=== PATIENT | female | born 1945 | race Caucasian/White ===

== ENCOUNTER → 2017-07-21 | Outpatient (CLI) | payer OTHER | LOC: FLAB 11:54 | PROVIDERS: ATTEND Internal Medicine | DX: J44.9 Chronic obstructive pulmonary disease, unspecified (principal); I50.9 Heart failure, unspecified; R91.8 Other nonspecific abnormal finding of lung field ==

== ENCOUNTER 2018-01-07 21:16 | Inpatient (IN) | payer OTHER, MEDICARE ==
--- NOTE | 2018-01-07 21:34 | CPEKG ---
Heart Rate: 121 RR Interval: 496 QRSD Interval: 86 QT Interval: 332 QTC Interval: 471 QRS Carey: 58 T Wave Carey: -15 EKG Severity - ABNORMAL ECG - EKG Impression: ATRIAL FIBRILLATION, V-RATE 87-142 EKG Impression: LOW VOLTAGE IN FRONTAL LEADS EKG Impression: BORDERLINE T ABNORMALITIES, INFERIOR LEADS Electronically Signed By: Sonam Sanz 07-Jan-2018 23:06:47
--- NOTE | 2018-01-07 21:40 | EDPHY ---
HPI/HX/ROS/PE/MDM Narrative: CHIEF COMPLAINT: Shortness of breath HISTORY OF PRESENT ILLNESS: The patient is a 72 y/o female with a history of COPD (on 3-5L room air) arriving via EMS complaining of worsening shortness of breath for the past three weeks. She saw her PCP after developing a cold, who prescribed her Prednisone. At this time she did not have a fever or chest pain, but she was coughing up colored sputum. She felt better for 1 week, but then began to feel worse again. For the past week she has felt sick and had mild shortness of breath. While at dinner tonight she was sitting down and felt more short of breath than normal so her skilled nursing called EMS. When EMS arrived they placed her on 6L room air instead of her normal 5L. Takes 324mg PO Aspirin daily and uses her inhalers as prescribed. The inhalers have not alleviated her symptoms today. Due to her COPD she sleeps in a chair and occasionally has swelling in her legs. Denies history of atrial fibrillation, cardiac stents, or AL's. No fever, chills, chest pain, palpitations, vomiting, diarrhea, urinary complaints, headache, lightheadedness. REVIEW OF SYSTEMS: Aside from elements discussed in the HPI, a comprehensive 10-point review of systems was reviewed and is negative. PAST MEDICAL HISTORY: COPD (on 3-5L room air), hypertension, hyperlipidemia, anemia, anxiety, pneumonia, gastritis SOCIAL HISTORY: Lives in [place] at [facility], retired, VITAL SIGNS: Reviewed by me GENERAL: Moderately obese, appears tired, well-developed, well-nourished, in mild to moderate respiratory distress. HEENT: Atraumatic. Eyes: No icterus, no injection. Mouth: moist mucous membranes. No erythema or lesions. Neck: supple with no adenopathy. LUNGS: Tachypneic, diminished breath soudns throughout, no wheezes, rhonchi or rales. CARDIAC: Irregularly irregular heart rate with mild tachycardia, no rubs, murmurs or gallops. ABDOMEN: Soft, nontender, nondistended, bowel sounds normal. BACK: No CVA tenderness. EXTREMITIES: No trauma. Bilateral pitting edema to the knees: 1+ on the left and trace on the right. Range of motion is normal throughout. NEURO: Alert and oriented, grossly nonfocal. SKIN: Warm and dry, no rash. PSYCHIATRIC: Normal mentation, no agitation. Portions of this note were transcribed by a medical sociologist. I personally performed a history, physical exam, medical decision making, and confirmed accuracy of information the transcribed note. ED Course: The patient is a 72 y/o female with a history of COPD (on 3-5L room air) arriving via EMS presenting with worsening shortness of breath for the past three weeks. On exam she is tachypneic and has diminished breath sounds throughout. She also has an irregularly irregular heart rate with mild tachycardia, and bilateral pitting edema. She is currently on 6L room air. Labs , chest x-ray, and EKG ordered. 2131: 12-LEAD EKG: Please see the full report in [facility]. My interpretation: Atrial fibrillation with a V-rate of 87-142 2234: Chest x-ray reveals a right middle lobe and lower lobe pneumonia as well as a small right pleural effusion. Additional labs ordered. She will need to be admitted for the pneumonia and new-onset atrial fibrillation. 2236: Consulted with hospitalist service, Dr. Sharma accepts admission of this patient. 2238: Reassessed patient and discussed laboratory and imaging findings. She is comfortable with plan for admission. Levofloxacin given for pneumonia. Severe Sepsis/Septic Shock Care Note The patient presents to the ED with shortness of breath, new onset atrial fibrillation, and pneumonia. The patient did have evidence of sepsis with heart rate greater than 90, and increased O2 requirements. Patient did not have evidence of end-organ dysfunction. MDM: Differential diagnosis for the patient's shortness of breath was considered including but not limited to pulmonary infectious processes, COPD exacerbation, pulmonary emboli, pulmonary edema, congestive heart failure, and cardiac causes. - Data Points Imaging Results: Imaging Impressions Chest X-Ray 01/07/18 21:56 Impression: 1. Right middle lobe and lower lobe pneumonia. Small right pleural effusion. 2. Cardiomegaly. Possible component of congestive heart failure, with mild pulmonary edema. Imaging: I viewed and interpreted images myself Laboratory Results: Laboratory Results 01/07/18 21:00 01/07/18 21:00 01/07/18 01/07/18 01/07/18 21:00 21:00 21:00 WBC RBC Hgb Hct MCV MCH MCHC RDW Plt Count MPV Neut % (Auto) Lymph % (Auto) Sullivan % (Auto) Eos % (Auto) Baso % (Auto) Nucleat RBC Rel Count Absolute Neuts (auto) Absolute Lymphs (auto) Absolute Monos (auto) Absolute Eos (auto) Absolute Basos (auto) Absolute Nucleated RBC Immature Gran % Immature Gran # PT Pending INR Pending APTT Pending Sodium 131 mEq/L L mEq/L (135-145) Potassium 4.7 mEq/L mEq/L (3.5-5.2) Chloride 94 mEq/L L mEq/L (97-110) Carbon Dioxide 26 mEq/l mEq/l (22-31) Anion Gap 11 mEq/L mEq/L (8-16) BUN 20 mg/dL mg/dL (7-23) Creatinine 1.1 mg/dL H mg/dL (0.6-1.0) Estimated GFR 49 Glucose 151 mg/dL H mg/dL (70-100) Calcium 9.0 mg/dL mg/dL (8.5-10.4) Total Bilirubin Pending 1.5 mg/dL H mg/dL (0.1-1.4) Conjugated Bilirubin 1.1 mg/dL H mg/dL (0.0-0.5) Unconjugated Bilirubin 0.4 mg/dL mg/dL (0.0-1.1) AST 32 IU/L IU/L (14-46) ALT 46 IU/L IU/L (9-52) Alkaline Phosphatase 79 IU/L IU/L (38-126) Troponin I < 0.012 ng/mL ng/mL (0.000-0.034) NT-Pro-B Natriuret Pep 5660 pg/mL H pg/mL (0-125) Total Protein 6.9 g/dL g/dL (6.3-8.2) Albumin 3.6 g/dL g/dL (3.5-5.0) 01/07/18 21:00 WBC 12.02 10^3/uL H 10^3/uL (3.80-9.50) RBC 4.00 10^6/uL L 10^6/uL (4.18-5.33) Hgb 11.3 g/dL L g/dL (12.6-16.3) Hct 36.1 % L % (38.0-47.0) MCV 90.3 fL fL (81.5-99.8) MCH 28.3 pg pg (27.9-34.1) MCHC 31.3 g/dL L g/dL (32.4-36.7) RDW 14.6 % % (11.5-15.2) Plt Count 282 10^3/uL 10^3/uL (150-400) MPV 11.8 fL H fL (8.7-11.7) Neut % (Auto) 81.9 % H % (39.3-74.2) Lymph % (Auto) 9.2 % L % (15.0-45.0) Sullivan % (Auto) 6.8 % % (4.5-13.0) Eos % (Auto) 0.9 % % (0.6-7.6) Baso % (Auto) 0.3 % % (0.3-1.7) Nucleat RBC Rel Count 0.0 % % (0.0-0.2) Absolute Neuts (auto) 9.83 10^3/uL H 10^3/uL (1.70-6.50) Absolute Lymphs (auto) 1.11 10^3/uL 10^3/uL (1.00-3.00) Absolute Monos (auto) 0.82 10^3/uL H 10^3/uL (0.30-0.80) Absolute Eos (auto) 0.11 10^3/uL 10^3/uL (0.03-0.40) Absolute Basos (auto) 0.04 10^3/uL 10^3/uL (0.02-0.10) Absolute Nucleated RBC 0.00 10^3/uL 10^3/uL (0-0.01) Immature Gran % 0.9 % % (0.0-1.1) Immature Gran # 0.11 10^3/uL H 10^3/uL (0.00-0.10) PT INR APTT Sodium Potassium Chloride Carbon Dioxide Anion Gap BUN Creatinine Estimated GFR Glucose Calcium Total Bilirubin Conjugated Bilirubin Unconjugated Bilirubin AST ALT Alkaline Phosphatase Troponin I NT-Pro-B Natriuret Pep Total Protein Albumin Medications Given: Levofloxacin/Dextrose (Levaquin 750 Mg (Premix)) 150 mls @ 100 mls/hr IV EDNOW ONE PRN Reason: Protocol Stop: 01/08/18 00:09 Last Admin: 01/07/18 23:16 Dose: 150 mls General Time Seen by Provider: 01/07/18 21:39 Initial Vital Signs: Initial Vital Signs Temperature (C) 36.7 C 01/07/18 21:16 Heart Rate 118 H 01/07/18 21:16 Respiratory Rate 20 01/07/18 21:16 Blood Pressure 167/132 H 01/07/18 21:16 O2 Sat (%) 91 L 01/07/18 21:16 O2 Delivery Mode Nasal Cannula O2 (L/minute) 6 Allergies/Adverse Reactions: Penicillins Allergy (Verified 01/07/18 21:38) Home Medications: Medication Instructions Recorded ACETAMINOPHEN 01/07/18 Advair 500/50 (*) 01/07/18 Albuterol 01/07/18 Aspirin 325 mg (*) 01/07/18 Atorvastatin Calcium 01/07/18 CLONAZEPAM 01/07/18 Escitalopram Oxalate 01/07/18 Metoprolol Tartrate 01/07/18 Prednisone 01/07/18 Proair Hfa 01/07/18 Ramipril 01/07/18 Spiriva Handihaler 01/07/18 Sucralfate 01/07/18 Tricor 01/07/18 amLODIPine BESYLATE 01/07/18 Departure - Departure Disposition: [facility] Inpatient Acute Clinical Impression: Shortness of breath, Pleural effusion Atrial fibrillation Qualifiers: Atrial fibrillation type: unspecified Qualified Code(s): I48.91 - Unspecified atrial fibrillation Pneumonia Qualifiers: Pneumonia type: due to unspecified organism Laterality: right Lung location: lower lobe of lung Qualified Code(s): J18.1 - Lobar pneumonia, unspecified organism Condition: Fair Report Scribed for: Sonam Sanz Report Scribed by: Antonette Ford Date of Report: 01/07/18 Time of Report: 21:40
[2018-01-07 22:09] LABS: PLATELET COUNT 282 10^3/uL (150-400)
[2018-01-07] MEDS ORDERED: ONDANSETRON 4 MG/2 ML VIAL IVP PRN (22:37)
[2018-01-07] MEDS ORDERED: methylPREDNISolone SOD SUCC 125 MG/2 ML VIAL IVP ONE (23:26)
[2018-01-07 23:27] LABS: INR 1.2 (0.83-1.16); PROTIME(PATIENT) 15.4 SEC (12.0-15.0)
--- NOTE | 2018-01-07 23:38 | PDGENHP ---
History and Physical - Chief Complaint Shortness of breath - History of Present Illness 72 yo obese F w/ COPD, CHRF, and HTN presents with cough and SOB. Patient states she was doing relatively well until 5 days ago when she began to note increased cough and shortness of breath. Her cough then became produce of yellow /green sputum. She sees ui software developer Dr. Chaparro for COPD and uses 3-5 L/min O2 chronically. She has had at least 3 COPD exacerbations in the last year. She explains that azithromycin and prednisone usually provide temporary relief but her symptoms eventually return. Currently she is short of breath but no in severe distress. She also is now in Afib, which she denies any prior knowledge of. History Information - Allergies/Home Medication List Allergies/Adverse Reactions: Penicillins Allergy (Verified 01/07/18 21:38) Home Medications: ACETAMINOPHEN 01/07/18 [Last Taken Unknown] Advair 500/50 (*) 01/07/18 [Last Taken Unknown] Albuterol 01/07/18 [Last Taken Unknown] Aspirin 325 mg (*) 01/07/18 [Last Taken Unknown] Atorvastatin Calcium 01/07/18 [Last Taken Unknown] CLONAZEPAM 01/07/18 [Last Taken Unknown] Escitalopram Oxalate 01/07/18 [Last Taken Unknown] Metoprolol Tartrate 01/07/18 [Last Taken Unknown] Prednisone 01/07/18 [Last Taken Unknown] Proair Hfa 01/07/18 [Last Taken Unknown] Ramipril 01/07/18 [Last Taken Unknown] Spiriva Handihaler 01/07/18 [Last Taken Unknown] Sucralfate 01/07/18 [Last Taken Unknown] Tricor 01/07/18 [Last Taken Unknown] amLODIPine BESYLATE 01/07/18 [Last Taken Unknown] I have personally reviewed and updated: family history, medical history - Past Medical History COPD, hypertension - Family History Positive for: cancer - Social History Smoking Status: Former smoker Review of Systems Review of Systems: ROS: 10pt was reviewed & negative except for what was stated in HPI & below Physical Exam Physical Exam: Temp Pulse Resp BP Pulse Ox 36.7 C 104 H 25 H 145/106 H 95 01/07/18 21:16 01/07/18 23:15 01/07/18 23:15 01/07/18 23:15 01/07/18 23:15 O2 (L/minute) 6 Constitutional: obese, uncomfortable Eyes: PERRL, EOMI Ears, Nose, Mouth, Throat: moist mucous membranes, no oral mucosal ulcers Cardiovascular: systolic murmur, irregularly irregular, edema (2+ LLE, 1+LLE) Respiratory: reduced air movement, other (Prolonged expiratory phase) Gastrointestinal: normoactive bowel sounds, soft, non-tender abdomen Skin: warm, normal color Musculoskeletal: full muscle strength, no muscle tenderness Neurologic: AAOx3, CN II-XII Intact Psychiatric: interacting appropriately, not anxious Lab Data & Imaging Review 01/07/18 21:00 01/07/18 21:00 WBC 12.02 10^3/uL (3.80-9.50) H 01/07/18 21:00 RBC 4.00 10^6/uL (4.18-5.33) L 01/07/18 21:00 Hgb 11.3 g/dL (12.6-16.3) L 01/07/18 21:00 Hct 36.1 % (38.0-47.0) L 01/07/18 21:00 MCV 90.3 fL (81.5-99.8) 01/07/18 21:00 MCH 28.3 pg (27.9-34.1) 01/07/18 21:00 MCHC 31.3 g/dL (32.4-36.7) L 01/07/18 21:00 RDW 14.6 % (11.5-15.2) 01/07/18 21:00 Plt Count 282 10^3/uL (150-400) 01/07/18 21:00 MPV 11.8 fL (8.7-11.7) H 01/07/18 21:00 Neut % (Auto) 81.9 % (39.3-74.2) H 01/07/18 21:00 Lymph % (Auto) 9.2 % (15.0-45.0) L 01/07/18 21:00 Fleming % (Auto) 6.8 % (4.5-13.0) 01/07/18 21:00 Eos % (Auto) 0.9 % (0.6-7.6) 01/07/18 21:00 Baso % (Auto) 0.3 % (0.3-1.7) 01/07/18 21:00 Nucleat RBC Rel Count 0.0 % (0.0-0.2) 01/07/18 21:00 Absolute Neuts (auto) 9.83 10^3/uL (1.70-6.50) H 01/07/18 21:00 Absolute Lymphs (auto) 1.11 10^3/uL (1.00-3.00) 01/07/18 21:00 Absolute Monos (auto) 0.82 10^3/uL (0.30-0.80) H 01/07/18 21:00 Absolute Eos (auto) 0.11 10^3/uL (0.03-0.40) 01/07/18 21:00 Absolute Basos (auto) 0.04 10^3/uL (0.02-0.10) 01/07/18 21:00 Absolute Nucleated RBC 0.00 10^3/uL (0-0.01) 01/07/18 21:00 Immature Gran % 0.9 % (0.0-1.1) 01/07/18 21:00 Immature Gran # 0.11 10^3/uL (0.00-0.10) H 01/07/18 21:00 PT 15.4 SEC (12.0-15.0) H 01/07/18 21:00 INR 1.20 (0.83-1.16) H 01/07/18 21:00 APTT 34.5 SEC (23.0-38.0) 01/07/18 21:00 VBG Lactic Acid 0.9 mmol/L (0.7-2.1) 01/07/18 22:45 Sodium 131 mEq/L (135-145) L 01/07/18 21:00 Potassium 4.7 mEq/L (3.5-5.2) 01/07/18 21:00 Chloride 94 mEq/L (97-110) L 01/07/18 21:00 Carbon Dioxide 26 mEq/l (22-31) 01/07/18 21:00 Anion Gap 11 mEq/L (8-16) 01/07/18 21:00 BUN 20 mg/dL (7-23) 01/07/18 21:00 Creatinine 1.1 mg/dL (0.6-1.0) H 01/07/18 21:00 Estimated GFR 49 01/07/18 21:00 Glucose 151 mg/dL (70-100) H 01/07/18 21:00 Calcium 9.0 mg/dL (8.5-10.4) 01/07/18 21:00 Total Bilirubin 1.4 mg/dL (0.1-1.4) 01/07/18 21:00 Conjugated Bilirubin 1.1 mg/dL (0.0-0.5) H 01/07/18 21:00 Unconjugated Bilirubin 0.4 mg/dL (0.0-1.1) 01/07/18 21:00 AST 32 IU/L (14-46) 01/07/18 21:00 ALT 46 IU/L (9-52) 01/07/18 21:00 Alkaline Phosphatase 79 IU/L (38-126) 01/07/18 21:00 Troponin I < 0.012 ng/mL (0.000-0.034) 01/07/18 21:00 NT-Pro-B Natriuret Pep 5660 pg/mL (0-125) H 01/07/18 21:00 Total Protein 6.9 g/dL (6.3-8.2) 01/07/18 21:00 Albumin 3.6 g/dL (3.5-5.0) 01/07/18 21:00 Imaging Review: Imaging Impressions Chest X-Ray 01/07/18 21:56 Impression: 1. Right middle lobe and lower lobe pneumonia. Small right pleural effusion. 2. Cardiomegaly. Possible component of congestive heart failure, with mild pulmonary edema. Assessment & Plan Assessment: 72 yo obese F w/ COPD, HTN, and CHRF presents with pneumonia and new AF. Plan: 1. Pneumonia - Based on SOB, cough w/ sputum production, and RML/RLL infiltrates on CXR. WBC of 12, afebrile. Tachycardic but in Afib so may not be physiologic. - Will treat with levofloxacin IV noting multiple prior azithromycin courses and risk for resistant organisms, mainly Pseudomonas - Blood and sputum cultures ordered 2. Severe COPD - Likely GOLD III-D noting FEV1 of 49% predicted and now >3 exacerbations in the last year. I suspect mild exacerbation is present noting patient is moving very small lung volumes currently. She has had at least three (4 counting today) exacerbations in the last year. She usually improves with course of azithromycin and prednisone but symptoms recur a few weeks later. - Methylprednisolone x1 now, then prednisone 40 mg qD - Duonebs QID, albuterol PRN - Levofloxacin as above - Will send sputum culture to see if we can identify resistant organism - Consider CT chest to look for predisposing factor to recurrent exacerbations ( malignancy, bronchiectasis), could be done as outpatient - Would likely benefit from daily azithromycin moving forward, but will defer this to ui software developer 3. Atrial fibrillation - New problem for this patient, likely triggered by pneumonia. [id number] of 3 for HTN, female sex, and age. Rates currently 90-110 without rate control. - Monitor on telemetry, TTE ordered - Treat acute infection as above - On metoprolol for HTN already - Consider anticoagulation 4. Suspected dCHF - Pulmonary edema and elevated BNP on admission. Will evaluate with TTE. - Lasix 20 mg IV x1 - Evaluate for ongoing dosing as needed 5. Acute on chronic HRF - Likely multifactorial from infectin, COPD exacerbation , AF, and mild pulmonary edema. Uses 3-5 L/min O2 at baseline, currently on 6 L O2. - Acute treatments as above - Incentive spirometry, wean O2 as able 6. HTN - Continue metoprolol Diet - Regular Code - Full Ppx - LMWH Dispo - Admit under inpatient status noting multiple active issues and need for further treatment and work-up.
[2018-01-07] MEDS ORDERED: FUROSEMIDE 20 MG/2 ML VIAL IVP ONE (23:56)
[2018-01-08] MEDS: IPRATROPIUM/ALBUTEROL 3 ML DEYVIAL IH SCH ×5 (00:10→23:52)
--- NOTE | 2018-01-08 00:22 | PDMN ---
Medical Necessity Medical necessity: C/M review: est. > 2 MN LO for eval and TX of acute and persistent pneumonia, COPD exacerbation, new atrial fibrillation, suspected diastolic CHF, acute hypoxic respiratory failure, mild pulmonary edema requiring IV Lasix x 1, IV Methylprednisolone x 1, planned echocardiogram, ongoing IV Levaquin, Duonebs, cardiac monitoring, supplemental O2 6L/min., pulse oximetry, comorbid severe COPD likely GOLD III-D, > 3 exacerbations in the last year, chronic hypoxic respiratory failure on baseline 3-5l/min. O2, hypertension, obesity, history of patient former smoker per H/P.
[2018-01-08] MEDS: ONDANSETRON DISINTEGRATING 4 MG TAB PO PRN ×2 (00:42→15:56)
[2018-01-08 04:31] LABS: PLATELET COUNT 213 10^3/uL (150-400)
[2018-01-08] MEDS: predniSONE 20 MG TAB PO SCH (08:32)
[2018-01-08] MEDS: ENOXAPARIN 40 MG/0.4 ML SYR SC SCH (08:32)
[2018-01-08] MEDS ORDERED: DILTIAZEM 125 MG in D5W 125 ML IV SCH (09:30)
--- NOTE | 2018-01-08 10:24 | ECHO ---
[email or web address] [address] [address] Main: [phone] Fax: Transthoracic Echocardiogram Name: NICANOR STORY MR#: [id number] Study Date: 01/08/2018 Study Time: 07:18 AM Date of : 1945 Age: 72 year(s) Height: 172.7 cm (68 in.) Weight: 113.4 kg (250 lb.) BSA: 2.25 m2 Gender: Female Examination: Echo Indication: Question CHF Image Quality: Technically Difficult Contrast: Requested by: Napoleon Duarte BP: 123 mmHg/59 mmHg Heart Rate: Rhythm: Indication: Question CHF Procedure Staff Regional Merchandising Manager: Heather Howard [facility] Reading Physician: Ramesh Thibodeaux MD Requesting Provider: Conclusions: The left atrium is mildly dilated. Mild mitral valve leaflet calcification is present. Tricuspid valve not well visualized. Mild tricuspid regurgitation is present. Pulmonary valve not well visualized. Pt is chair all night (breathing difficulty). Very limited views available for interpretation.. Technically very limited study Measurements: Chambers Valvular Assessment AV/MV Valvular Assessment TV/PV Normal Normal Normal Name Value Range Name Value Range Name Value Range Ao Marian (2D): 3.6 cm (1.4 cm-2.6 cm) Continued Measurements: Chambers Name Value LADs: 4.8 cm Findings: Left Atrium: The left atrium is mildly dilated. Mitral Valve: Mild mitral valve leaflet calcification is present. Tricuspid Valve: Patient: NICANOR STORY Study Date: 01/08/2018 Page 1 of 2 07:18 AM Tricuspid valve not well visualized. Mild tricuspid regurgitation is present. Pulmonic Valve: Pulmonary valve not well visualized. Pericardium: There is pericardial fat. Exam Comments: Pt is chair all night (breathing difficulty). Very limited views available for interpretation.. (No Signature Object) Patient: NICANOR STORY Study Date: 01/08/2018 Page 2 of 2 07:18 AM [id number]
--- NOTE | 2018-01-08 13:34 | ASMTCMCOM ---
CM Note CM Note Notes: Patient admitted for PNA superimposed on severe COPD. I met with patient, she lives at [facility]. She does not really have much assistance there, just some housekeeping help. She is normally independent. I explained that GW will likely require an evaulation if she is here more than 24 hours. Patient has a daughter Erica who is local and supportive. I don't think patient will have any d/c needs, but we will assist if any arise. Date Signed: 01/08/2018 01:33 PM Electronically Signed By:Marcela Degroot RN
--- NOTE | 2018-01-08 14:13 | HOSPPROG ---
Hospitalist Progress Note Assessment/Plan: # Acute Atrial fibrillation w/ RVR- likely triggered by PNA/COPD. [id number] of 3 TElemetry (personally reviewed and interpreted) atrial fibrillation Rates currently 140-150 - start IV diltiazem drip - Monitor on telemetry, TTE ordered - Treat underlying pulmonary process - continue outpatient metoprolol- can up titrate - Consider anticoagulation # community acquired Pneumonia - with SOB, cough w/ sputum production -CXR- RML/ RLL infiltrates WBC of 12, afebrile. - continue levofloxacin IV (multiple prior azithromycin courses) - monitor Blood and sputum cultures # Severe COPD - with acute exacerbation - describe still feeling tight this morning Oxygen saturations 91% on 6 L - received Methylprednisolone x1 - continue prednisone 40 mg qD - Duonebs QID, albuterol PRN - monitor sputum culture - will need outpatient rehab therapy manager # Suspected dCHF - Pulmonary edema and elevated BNP on admission- received Lasix 20 mg IV x1 in emergency department - TTE pending # Acute on chronic HRF - Likely multifactorial from infectin, COPD exacerbation , AF, and mild pulmonary edema. Uses 3-5 L/min O2 at baseline, currently on 6 L O2. - Acute treatments as above - Incentive spirometry, wean O2 as able # HTN - Continue metoprolol # Diet - Regular Code - Full Ppx - LMWH Dispo - Admit under inpatient status noting multiple active issues and need for further treatment and work-up. I have discussed the case with the RN-we will start diltiazem drip this morning for rate control Subjective: Very short of breath Objective: Vital Signs Temp Pulse Resp BP Pulse Ox 36.6 C 105 H 20 146/61 H 91 L 01/08/18 11:07 01/08/18 12:01 01/08/18 12:01 01/08/18 11:07 01/08/18 12:01 Laboratory Results 01/08/18 03:58 01/08/18 03:58 01/07/18 01/08/18 01/09/18 05:59 05:59 05:59 Intake Total 210 Output Total 50 Balance 160 PT 15.4 SEC (12.0-15.0) H 01/07/18 21:00 INR 1.20 (0.83-1.16) H 01/07/18 21:00 - Physical Exam Constitutional: no apparent distress Eyes: anicteric sclera Ears, Nose, Mouth, Throat: moist mucous membranes Cardiovascular: irregularly irregular, tachycardia Respiratory: no respiratory distress Gastrointestinal: normoactive bowel sounds Genitourinary: no bladder fullness Skin: warm Musculoskeletal: No asymmetric calves Neurologic: AAOx3 Psychiatric: interacting appropriately Lymph, Heme, Immunologic: no cervical LAD ICD10 Worksheet Patient Problems: Problems Problem Status Onset Atrial fibrillation Acute Pleural effusion Acute Pneumonia Acute Shortness of breath Acute
[2018-01-08] MEDS ORDERED: FAMOTIDINE 20 MG TAB PO PRN (14:17)
[2018-01-08] MEDS ORDERED: clonazePAM 0.5 MG TAB PO PRN (14:17)
[2018-01-08] MEDS: TIOTROPIUM INHALER 18 MCG/DOSE 5 DOSE/MDI IH SCH (15:21)
[2018-01-08] MEDS: FLUTICASONE/SALMETER 500/50MCG DISKUS IH SCH ×2 (15:21→23:52)
[2018-01-08] MEDS: METOPROLOL TARTRATE 50 MG TAB PO SCH ×2 (15:56→21:13)
[2018-01-09 04:23] LABS: PLATELET COUNT 214 10^3/uL (150-400)
[2018-01-09] MEDS: SUCRALFATE 1 GM TAB PO PRN ×2 (04:48→13:57)
[2018-01-09] MEDS: ONDANSETRON DISINTEGRATING 4 MG TAB PO PRN ×3 (04:48→15:29)
[2018-01-09] MEDS: IPRATROPIUM/ALBUTEROL 3 ML DEYVIAL IH SCH ×3 (06:04→17:07)
[2018-01-09] MEDS: FLUTICASONE/SALMETER 500/50MCG DISKUS IH SCH (08:48)
[2018-01-09] MEDS ORDERED: ASPIRIN 325 MG TAB PO SCH (09:00)
[2018-01-09] MEDS: FENOFIBRATE 145 MG TAB PO SCH (09:29)
[2018-01-09] MEDS: CETIRIZINE 10 MG TAB PO SCH (09:30)
[2018-01-09] MEDS: ENOXAPARIN 40 MG/0.4 ML SYR SC SCH (09:30)
[2018-01-09] MEDS: predniSONE 20 MG TAB PO SCH (09:30)
[2018-01-09] MEDS: ESCITALOPRAM OXALATE 10 MG TAB PO SCH (09:30)
[2018-01-09] MEDS: ROSUVASTATIN CALCIUM 10 MG TAB PO SCH (09:30)
[2018-01-09] MEDS: METOPROLOL TARTRATE 50 MG TAB PO SCH ×2 (09:31→21:28)
[2018-01-09] MEDS: TIOTROPIUM INHALER 18 MCG/DOSE 5 DOSE/MDI IH SCH (10:48)
[2018-01-09] MEDS ORDERED: MAGNESIUM HYDROXIDE 30 ML UDCUP PO PRN (11:07)
[2018-01-09] MEDS ORDERED: POLYETHYLENE GLYCOL 3350 17 GM PKT PO PRN (11:07)
[2018-01-09] MEDS ORDERED: BISACODYL 10 MG SUPP PR PRN (11:07)
[2018-01-09] MEDS ORDERED: LACTULOSE 20 GM/30 ML UDCUP PO PRN (11:07)
[2018-01-09] MEDS ORDERED: METOPROLOL TARTRATE 25 MG TAB PO ONE (11:09)
--- NOTE | 2018-01-09 12:38 | HOSPPROG ---
Hospitalist Progress Note Assessment/Plan: # Acute Atrial fibrillation w/ RVR- likely triggered by PNA/COPD. [id number] of 3 Telemetry (personally reviewed and interpreted) atrial fibrillation Rates currently 140-150 - stopped IV diltiazem drip - starting eliquis - increase home Metoprolol to 75mb BID # community acquired Pneumonia - with SOB, cough w/ sputum production -CXR- RML/ RLL infiltrates WBC of 12, afebrile. - continue levofloxacin PO - monitor Blood and sputum cultures # Severe COPD - with acute exacerbation - breathing more comfortably today Oxygen saturations 91% on 6 L - received Methylprednisolone x1 - continue prednisone 40 mg qD - Duonebs QID, albuterol PRN - monitor sputum culture - will need outpatient insurance verification clerk # Suspected dCHF - Pulmonary edema and elevated BNP on admission- received Lasix 20 mg IV x1 in emergency department - TTE pending # Acute on chronic HRF - Likely multifactorial from infectin, COPD exacerbation , AF, and mild pulmonary edema. Uses 3-5 L/min O2 at baseline, currently on 6 L O2. - Acute treatments as above - Incentive spirometry, wean O2 as able # HTN - Continue metoprolol # Diet - Regular Code - Full Ppx - LMWH Dispo - Admit under inpatient status noting multiple active issues and need for further treatment and work-up. I have discussed the case with the RN-we will start diltiazem drip this morning for rate control Subjective: sob Objective: Vital Signs Temp Pulse Resp BP Pulse Ox 36.9 C 102 H 20 125/77 H 90 L 01/09/18 12:00 01/09/18 12:00 01/09/18 12:00 01/09/18 12:00 01/09/18 12:00 Laboratory Results 01/09/18 03:46 01/08/18 03:58 01/08/18 01/09/18 01/10/18 05:59 05:59 05:59 Intake Total 210 1250 Output Total 50 200 Balance 160 1050 PT 15.4 SEC (12.0-15.0) H 01/07/18 21:00 INR 1.20 (0.83-1.16) H 01/07/18 21:00 - Physical Exam Constitutional: chronically ill appearing, obese Eyes: anicteric sclera Ears, Nose, Mouth, Throat: moist mucous membranes Cardiovascular: regular rate and rhythym Respiratory: reduced air movement, No expiratory wheeze Gastrointestinal: normoactive bowel sounds Genitourinary: no bladder fullness Skin: warm Musculoskeletal: full muscle strength Neurologic: AAOx3 Psychiatric: interacting appropriately Lymph, Heme, Immunologic: no cervical LAD ICD10 Worksheet Patient Problems: Problems Problem Status Onset Atrial fibrillation Acute Pleural effusion Acute Pneumonia Acute Shortness of breath Acute chronic disease mgmt/transitional care Acute
[2018-01-09] MEDS: APIXABAN 5 MG TAB PO SCH ×2 (13:53→21:29)
[2018-01-09] MEDS ORDERED: ONDANSETRON DISINTEGRATING 4 MG TAB PO PRN (19:28)
[2018-01-09] MEDS ORDERED: PROMETHAZINE HCL 25 MG TAB PO PRN (19:28)
[2018-01-09] MEDS: PROMETHAZINE HCL 25 MG/ML INJ IVP PRN (19:54)
[2018-01-09] MEDS: clonazePAM 0.5 MG TAB PO PRN (20:05)
[2018-01-09] MEDS: SENNOSIDES/DOCUSATE SODIUM TAB PO SCH (21:28)
[2018-01-10] MEDS: FLUTICASONE/SALMETER 500/50MCG DISKUS IH SCH ×3 (00:42→20:59)
[2018-01-10] MEDS: IPRATROPIUM/ALBUTEROL 3 ML DEYVIAL IH SCH ×5 (00:43→20:59)
[2018-01-10] MEDS: ACETAMINOPHEN 325 MG TAB PO PRN (03:53)
[2018-01-10] MEDS: PROMETHAZINE HCL 25 MG/ML INJ IVP PRN ×2 (07:45→17:29)
[2018-01-10] MEDS ORDERED: NS 1,000 ML IV ONE (08:21)
[2018-01-10] MEDS: METOPROLOL TARTRATE 50 MG TAB PO SCH ×2 (09:44→21:55)
[2018-01-10] MEDS: ESCITALOPRAM OXALATE 10 MG TAB PO SCH (09:44)
[2018-01-10] MEDS: FENOFIBRATE 145 MG TAB PO SCH (09:44)
[2018-01-10] MEDS: predniSONE 20 MG TAB PO SCH (09:44)
[2018-01-10] MEDS: ROSUVASTATIN CALCIUM 10 MG TAB PO SCH (09:44)
[2018-01-10] MEDS: CETIRIZINE 10 MG TAB PO SCH (09:44)
[2018-01-10] MEDS: APIXABAN 5 MG TAB PO SCH ×2 (09:44→21:54)
[2018-01-10] MEDS: SENNOSIDES/DOCUSATE SODIUM TAB PO SCH ×2 (09:45→21:54)
[2018-01-10] MEDS: PANTOPRAZOLE SODIUM 40 MG VIAL IVP SCH (10:01)
[2018-01-10] MEDS: TIOTROPIUM INHALER 18 MCG/DOSE 5 DOSE/MDI IH SCH (10:37)
--- NOTE | 2018-01-10 12:44 | ASMTCMCOM ---
CM Note CM Note Notes: 01/10/2018 Case Management Note Met w/pt this morning. Pt was admitted for PNA and AF. Pt lives at [facility]. She takes three meals a day in the dining bowles. She also has light housekeeping. She is independent in her ADL's and does not use any med management services. Pt has 2 daughters involved in her cares. Daughter Kusum lives in [place] and can be reached at [phone]. Daughter Jennifer lives in [place] and can be reached at [phone]. Case Management d/c poc: to be determined pending outcome of PT evals over the next few days. Pt may require home care. Case Management to follow. Date Signed: 01/10/2018 12:44 PM Electronically Signed By:Estrellita Prajapati RN
--- NOTE | 2018-01-10 15:41 | ASMTCMCOM ---
CM Note CM Note Notes: 01/10/2018 Case Management Note Discussed patient d/c with PT. PT recommending SNF. Discussed recommendations with patient. Discussed with daughter Kusum who is in agreement. Transitional Care RN also recommending SNF rehab. Discussed options with Kusum and sent referrals at her request for [facility], [facility], [facility], [facility], [facility] and [facility]. Spoke with daughter Jennifer who lives in [place]. Jennifer is arriving tomorrow late morning and plans to arrive at [facility] after lunch. Discussed SNF rehabs with Jennifer who is in agreement. Case Management d/c poc: to SNF rehab pending acceptance and authorization. Case Management to follow. Date Signed: 01/10/2018 03:40 PM Electronically Signed By:Estrellita Prajapati RN
--- NOTE | 2018-01-10 18:03 | HOSPPROG ---
Hospitalist Progress Note Assessment/Plan: # Acute Atrial fibrillation w/ RVR- pt remains in afib - rates with improved control ikely triggered by PNA/COPD. [id number] of 3 Telemetry (personally reviewed and interpreted) atrial fibrillation Rates 80 -90 - stopped IV diltiazem drip - starting eliquis - continue increased home Metoprolol to 75mg BID # Hyponatremia - drop overnight to 127 - pt with verpoor PO inpatient suspect likely a component of hypovolemia - - NS bolus now - Urine sodium spot - recheck BMP this pm # AUBREE - also suspect related to poor PO intake - NS as above - no nephrotoxins on list - recheck this pm # community acquired Pneumonia - with SOB, cough w/ sputum production -CXR- RML/ RLL infiltrates WBC of 12, afebrile. - continue levofloxacin PO - monitor Blood and sputum cultures # Severe COPD - with acute exacerbation - breathing more comfortably today Oxygen saturations 96% on 6 L - received Methylprednisolone x1 in ED- respiratory pathogen panel negative - continue prednisone 40 mg qD - Duonebs QID, albuterol PRN - will need outpatient long haul truck driver # Suspected dCHF - elevated BNP on admission- received Lasix 20 mg IV x1 in emergency department - TTE with poor windows - no clear EF estimate # Acute on chronic HRF - Likely multifactorial from infectin, COPD exacerbation , AF, and mild pulmonary edema. Uses 3-5 L/min O2 at baseline, currently on 6 L O2. - Acute treatments as above - Incentive spirometry, wean O2 as able # HTN - Continue metoprolol # Diet - Regular Code - Full Ppx - LMWH Dispo - Admit under inpatient status noting multiple active issues and need for further treatment and work-up. I have discussed the case with the RN-we will focus on bowel regimen today to help with nausea and promote better PO Subjective: nauseated Objective: Vital Signs Temp Pulse Resp BP Pulse Ox 36.8 C 120 H 20 148/91 H 91 L 01/10/18 17:54 01/10/18 17:54 01/10/18 17:54 01/10/18 17:54 01/10/18 17:54 Laboratory Results 01/09/18 03:46 01/10/18 12:05 01/09/18 01/10/18 01/11/18 05:59 05:59 05:59 Intake Total 1250 200 780 Output Total 200 500 800 Balance 1050 -300 -20 PT 15.4 SEC (12.0-15.0) H 01/07/18 21:00 INR 1.20 (0.83-1.16) H 01/07/18 21:00 - Physical Exam Constitutional: chronically ill appearing, obese Eyes: anicteric sclera Ears, Nose, Mouth, Throat: moist mucous membranes Cardiovascular: irregularly irregular Respiratory: reduced air movement, No expiratory wheeze Gastrointestinal: normoactive bowel sounds Genitourinary: no bladder fullness Skin: warm Musculoskeletal: No asymmetric calves Neurologic: AAOx3 Psychiatric: interacting appropriately Lymph, Heme, Immunologic: no cervical LAD ICD10 Worksheet Patient Problems: Problems Problem Status Onset Atrial fibrillation Acute Pleural effusion Acute Pneumonia Acute Shortness of breath Acute chronic disease mgmt/transitional care Acute
[2018-01-10] MEDS: clonazePAM 0.5 MG TAB PO PRN (21:54)
[2018-01-11] MEDS: IPRATROPIUM/ALBUTEROL 3 ML DEYVIAL IH SCH ×4 (05:24→21:51)
[2018-01-11] MEDS ORDERED: SODIUM POLY SULF 15 GM/60 ML BOTTLE PO ONE (08:36)
[2018-01-11] MEDS ORDERED: NS 500 ML IV ONE (08:37)
[2018-01-11] MEDS: PANTOPRAZOLE SODIUM 40 MG VIAL IVP SCH (09:09)
[2018-01-11] MEDS: POLYETHYLENE GLYCOL 3350 17 GM PKT PO SCH (09:10)
[2018-01-11] MEDS: ESCITALOPRAM OXALATE 10 MG TAB PO SCH (09:10)
[2018-01-11] MEDS: SENNOSIDES/DOCUSATE SODIUM TAB PO SCH ×2 (09:10→21:40)
[2018-01-11] MEDS: ROSUVASTATIN CALCIUM 10 MG TAB PO SCH (09:10)
[2018-01-11] MEDS: METOPROLOL TARTRATE 50 MG TAB PO SCH ×2 (09:10→21:39)
[2018-01-11] MEDS: predniSONE 20 MG TAB PO SCH (09:11)
[2018-01-11] MEDS: APIXABAN 5 MG TAB PO SCH ×2 (09:11→21:40)
[2018-01-11] MEDS: CETIRIZINE 10 MG TAB PO SCH (09:11)
[2018-01-11] MEDS: FENOFIBRATE 145 MG TAB PO SCH (09:11)
[2018-01-11] MEDS: FLUTICASONE/SALMETER 500/50MCG DISKUS IH SCH ×2 (10:25→21:51)
[2018-01-11] MEDS: TIOTROPIUM INHALER 18 MCG/DOSE 5 DOSE/MDI IH SCH (10:26)
--- NOTE | 2018-01-11 12:37 | HOSPPROG ---
Hospitalist Progress Note Assessment/Plan: # Acute Atrial fibrillation w/ RVR- pt remains in afib - rates with improved control likely triggered by PNA/COPD. [id number] of 3 Telemetry (personally reviewed and interpreted) atrial fibrillation Rates 80 -90 - stopped IV diltiazem drip - started eliquis - continue increased home Metoprolol to 75mg BID # Hyponatremia - drop overnight to 125 - pt with yamilex poor PO inpatient suspect likely a component of hypovolemia - urine sodium low - repeat NS bolus now - start salt tabs - recheck BMP this pm # AUBREE on CKD- also suspect related to poor PO intake - near baseline - NS as above - no nephrotoxins on list - recheck this pm # hyperkalemia - 5.5 - has been fluctuating - responded to IVF yesterday - repeat bolus - kayexelate x 1 - recheck BMP this afternoon # community acquired Pneumonia - with SOB, cough w/ sputum production -CXR- RML/ RLL infiltrates WBC of 12-> 6, afebrile. - continue levofloxacin PO - monitor Blood and sputum cultures # Severe COPD - with acute exacerbation - breathing more comfortably today Oxygen saturations 96% on 6 L - received Methylprednisolone x1 in ED- respiratory pathogen panel negative - continue prednisone 40 mg qD - Duonebs QID, albuterol PRN - will need outpatient engineering model maker # Suspected dCHF - elevated BNP on admission- received Lasix 20 mg IV x1 in emergency department - TTE with poor windows - no clear EF estimate # Acute on chronic HRF - Likely multifactorial from infection, COPD exacerbation , AF, and mild pulmonary edema. Uses 3-5 L/min O2 at baseline, currently on 6 L O2. - Acute treatments as above - Incentive spirometry, wean O2 as able # HTN - Continue metoprolol # Diet - Regular Code - Full Ppx - LMWH Dispo - Admit under inpatient status noting multiple active issues and need for further treatment and work-up. I have discussed the case with the RN-adding Kayexalate for hyperkalemia should assist with bowel regimen as well Subjective: breathing feels better- no BM Objective: Vital Signs Temp Pulse Resp BP Pulse Ox 36.7 C 110 H 18 105/70 94 01/11/18 12:00 01/11/18 12:00 01/11/18 12:00 01/11/18 12:00 01/11/18 12:00 Laboratory Results 01/09/18 03:46 01/10/18 01/11/18 01/12/18 05:59 05:59 05:59 Intake Total 200 2130 500 Output Total 500 1250 1150 Balance -300 880 -650 PT 15.4 SEC (12.0-15.0) H 01/07/18 21:00 INR 1.20 (0.83-1.16) H 01/07/18 21:00 - Physical Exam Constitutional: chronically ill appearing, obese Eyes: anicteric sclera Ears, Nose, Mouth, Throat: moist mucous membranes Cardiovascular: regular rate and rhythym Respiratory: reduced air movement, No expiratory wheeze Gastrointestinal: normoactive bowel sounds Genitourinary: no bladder fullness Skin: warm Musculoskeletal: No asymmetric calves Neurologic: AAOx3 Psychiatric: interacting appropriately Lymph, Heme, Immunologic: no cervical LAD ICD10 Worksheet Patient Problems: Problems Problem Status Onset Atrial fibrillation Acute Pleural effusion Acute Pneumonia Acute Shortness of breath Acute chronic disease mgmt/transitional care Acute
--- NOTE | 2018-01-11 16:52 | ASMTCMCOM ---
CM Note CM Note Notes: 01/11/2018 Case Management Note Met w/pt daughter Jennifer to discuss accepting SNF facilities. Jennifer and sister Kusum to visit tonight and tomorrow morning to make final decision. Faxed updates via [employer]. After discussion, Jennifer requested Palliative Care Consult. Notified RN and MD of request. Case Management d/c poc: to SNF rehab pending family choice. Case Management to follow. Date Signed: 01/11/2018 04:52 PM Electronically Signed By:Estrellita Prajapati RN
[2018-01-11] MEDS: PROMETHAZINE HCL 25 MG/ML INJ IVP PRN (18:07)
[2018-01-12] MEDS: IPRATROPIUM/ALBUTEROL 3 ML DEYVIAL IH SCH ×4 (06:01→20:38)
[2018-01-12] MEDS: PROMETHAZINE HCL 25 MG/ML INJ IVP PRN (09:05)
[2018-01-12] MEDS: PANTOPRAZOLE SODIUM 40 MG VIAL IVP SCH (09:10)
[2018-01-12] MEDS: SENNOSIDES/DOCUSATE SODIUM TAB PO SCH ×2 (09:18→22:07)
[2018-01-12] MEDS: ESCITALOPRAM OXALATE 10 MG TAB PO SCH (09:18)
[2018-01-12] MEDS: APIXABAN 5 MG TAB PO SCH ×2 (09:19→22:07)
[2018-01-12] MEDS: METOPROLOL TARTRATE 50 MG TAB PO SCH ×2 (09:19→22:08)
[2018-01-12] MEDS: ROSUVASTATIN CALCIUM 10 MG TAB PO SCH (09:19)
[2018-01-12] MEDS: predniSONE 20 MG TAB PO SCH (09:19)
[2018-01-12] MEDS: FENOFIBRATE 145 MG TAB PO SCH (09:19)
[2018-01-12] MEDS: POLYETHYLENE GLYCOL 3350 17 GM PKT PO SCH (09:19)
[2018-01-12] MEDS: CETIRIZINE 10 MG TAB PO SCH (09:19)
[2018-01-12] MEDS: TIOTROPIUM INHALER 18 MCG/DOSE 5 DOSE/MDI IH SCH (12:01)
[2018-01-12] MEDS: FLUTICASONE/SALMETER 500/50MCG DISKUS IH SCH ×2 (12:01→20:39)
--- NOTE | 2018-01-12 13:00 | HOSPPROG ---
Hospitalist Progress Note Assessment/Plan: DIAGNOSES: # Acute on chronic hypoxemic respiratory failure, multifactorial * Continue to be quite debilitated by her breathing and needing more oxygen than her baseline # Severe COPD - with acute exacerbation * Currently prednisone 40 per day * Christie winters Spiriva ongoing # community acquired Pneumonia * Is at the end of the usual duration for antibiotics, but still with quite a bit of cough, will repeat x-ray * No organisms identified so far # acute on probably chronic right-sided congestive heart failure ( echocardiogram done this admission was a very poor quality, unable to really assess heart anatomy and function well) * Still with quite a bit of edema; received just a single dose of Lasix on admission day, no direct since then (? because of renal insufficiency) - at this point I think diuresis is going to be essential and in fact may be very useful for her renal function if we can decompress her right ventricle filling pressures * She is not on a low-salt diet, and compression stockings may also help somewhat * Likely has obesity hypoventilation syndrome, and would be highly suspicious of sleep apnea; unclear to me if she has been tested for that # Acute Atrial fibrillation w/ RVR new diagnosis this admission / [id number] of 3 * Rate currently controlled on metoprolol * On Eliquis for stroke prevention # AUBREE on CKD- * Unchanged in last several days, suspect this is hemodynamic and there may be poor renal perfusion due to right heart failure # Hyponatremia / hyperkalemia * Exam and urine sodium suggest this is a hypervolemic hyponatremia and should be treated by salt restriction and diuresis; would not use sodium supplements # gait instability, high fall risk, severe deconditioning and generalized weakness # chronic hypertension on treatment # moderate normocytic anemia, is currently at her baseline compared to 1 year ago; may be related to renal disease # morbid obesity Patient seen by me for hospitals rounds, also during multidisciplinary rounds I reviewed her conditions and plans in detail with the patient, the daughters at the bedside, and her nurse PLANS: -repeat chest x-ray now, will probably stop antibiotics at this point -continue steroids bronchodilator therapy -will add an Acapella flutter valve -will add low-salt diet and Nathaniel stockings at this time -will begin diuresis -follow weights, volume status, renal function closely -continue rate control and anticoagulation for AFib; if we have trouble controlling her volume overload/heart failure may consider whether a cardioversion would be helpful -continue PT and OT -will trying get touch with Dr. Chaparro and see if she has had any testing for sleep apnea -plan on likely transfer to retirement facility, the daughter will go look at facilities at this time -ongoing palliative discussions with the palliative care team at this time; apparently the daughters have very different thoughts and ideas about appropriate decisions but the patient herself not as clearly decided yet SUBJECTIVE: Still very weak and tired though noted it was slightly easier for her to get up to the bedside commode today Still not really able to ambulate much beyond that Little change in dyspnea from yesterday Still with cough, unable to bring up phlegm OBJECTIVE Vitals reviewed: Occasional mild tachycardia otherwise stable without fever Batch And Furnace Operator, my review: AFib reasonably well rate controlled Exam: alert oriented Marked obesity Unable to determine if JVD present due to obesity skin warm dry color ok resps not labored lungs barely audible BSs without specific abnormal features heard heart regular abd soft nondistended nontender, bowel sounds present limbs warm, still with quite a bit of edema in both legs up beyond the knees iv site ok Laboratory data: Sodium improved today at 128, creatinine unchanged at 124 BUN remains elevated Slightly more anemic today but at her baseline from year ago Objective: Vital Signs Temp Pulse Resp BP Pulse Ox 36.6 C 106 H 20 119/71 96 01/12/18 11:13 01/12/18 12:01 01/12/18 12:01 01/12/18 11:13 01/12/18 12:01 Laboratory Results 01/12/18 03:29 01/12/18 03:29 01/11/18 01/12/18 01/13/18 06:59 06:59 06:59 Intake Total 2130 500 Output Total 1650 2200 300 Balance 480 -1700 -300 PT 15.4 SEC (12.0-15.0) H 01/07/18 21:00 INR 1.20 (0.83-1.16) H 01/07/18 21:00 ICD10 Worksheet Patient Problems: Problems Problem Status Onset Atrial fibrillation Acute Pleural effusion Acute Pneumonia Acute Shortness of breath Acute chronic disease mgmt/transitional care Acute
[2018-01-12] MEDS: FUROSEMIDE 40 MG/4 ML VIAL IVP SCH (15:44)
--- NOTE | 2018-01-12 17:01 | ASMTCMCOM ---
CM Note CM Note Notes: 01/12/2018 Case Management Note Met Jaqui and Anna. Rodriguez to chose facility, currently considering [facility] [place] and the [facility] [place]. Pt declined palliative meeting d/t fatigue today. Case Management d/c poc: to SNF pending family choice with palliative consult. Case Management to follow. Date Signed: 01/12/2018 05:00 PM Electronically Signed By:Estrellita Prajapati RN
[2018-01-12] MEDS ORDERED: SODIUM CHLORIDE 1,000 MG TAB PO SCH (18:00)
[2018-01-12] MEDS: clonazePAM 0.5 MG TAB PO PRN (22:11)
[2018-01-12] MEDS: ONDANSETRON 4 MG/2 ML VIAL IVP PRN (22:16)
[2018-01-13] MEDS: IPRATROPIUM/ALBUTEROL 3 ML DEYVIAL IH SCH ×3 (04:56→16:53)
[2018-01-13] MEDS: ACETAMINOPHEN 325 MG TAB PO PRN ×3 (05:04→20:35)
[2018-01-13] MEDS: ONDANSETRON 4 MG/2 ML VIAL IVP PRN (07:54)
[2018-01-13] MEDS: POLYETHYLENE GLYCOL 3350 17 GM PKT PO SCH ×2 (08:14→08:16)
[2018-01-13] MEDS: predniSONE 20 MG TAB PO SCH (08:15)
[2018-01-13] MEDS: FENOFIBRATE 145 MG TAB PO SCH (08:15)
[2018-01-13] MEDS: CETIRIZINE 10 MG TAB PO SCH (08:15)
[2018-01-13] MEDS: ROSUVASTATIN CALCIUM 10 MG TAB PO SCH (08:15)
[2018-01-13] MEDS: SENNOSIDES/DOCUSATE SODIUM TAB PO SCH ×2 (08:15→21:07)
[2018-01-13] MEDS: METOPROLOL TARTRATE 50 MG TAB PO SCH ×2 (08:15→23:54)
[2018-01-13] MEDS: ESCITALOPRAM OXALATE 10 MG TAB PO SCH (08:15)
[2018-01-13 08:55] LABS: PLATELET COUNT 239 10^3/uL (150-400)
[2018-01-13] MEDS: FLUTICASONE/SALMETER 500/50MCG DISKUS IH SCH ×2 (09:58→20:32)
[2018-01-13] MEDS: APIXABAN 5 MG TAB PO SCH ×2 (10:18→21:07)
[2018-01-13] MEDS: FUROSEMIDE 40 MG/4 ML VIAL IVP SCH ×2 (10:18→14:33)
[2018-01-13] MEDS ORDERED: POTASSIUM CL 10 MEQ TAB PO ONE (11:31)
--- NOTE | 2018-01-13 14:59 | ASMTCMCOM ---
CM Note CM Note Notes: Pts case discussed in morning rounds. CM spoke w/ Kevin regarding family's choice to use palliative after d/c from SNF. CM provided pts daughter Erica w/ brochures for [facility]. CM spoke w/ Erica regarding pts PCP. Erica reports that pt has stopped seeing Dr. Esparza and have been seeing an MD at [facility]. CM to discuss further w/ family tomorrow regarding palliative and SNF choice. Plan: TBD Date Signed: 01/13/2018 02:58 PM Electronically Signed By:LUZMA Singh
--- NOTE | 2018-01-13 16:39 | ASMTCMCOM ---
CM Note CM Note Notes: CM spoke w/ daughter and family has chosen [facility]. CM called Myla, at the [facility] and notified them of their choice. CM to follow up tomorrow on their selection for outpatient palliative. CM to follow. Plan: [facility] Date Signed: 01/13/2018 04:38 PM Electronically Signed By:LUZMA Singh
--- NOTE | 2018-01-13 17:40 | HOSPPROG ---
Hospitalist Progress Note Assessment/Plan: Assessment: 72-year-old female presents with acute shortness of breath secondary to acute COPD exacerbation, community-acquired pneumonia, acute right- sided diastolic congestive heart failure exacerbation Plan: 1. Acute COPD exacerbation. Ongoing reduced expiratory air movement comma no expiratory wheezes or bronchial breath sounds -status post 6 days of prednisone, discontinue -continue duo nebs as needed -will need to be established with outpatient sales and training specialist 2. Community-acquired pneumonia. Present on admission, chest x-ray with definitive right lower lobe infiltrate, personally interpreted -status post 7 days of levofloxacin, discontinue 3. Acute diastolic right-sided congestive heart failure exacerbation. Remains somewhat hypovolemic, lower extremity edema, inspiratory crackles in the bases with reduced air movement in the right base -continue IV Lasix 40 mg twice daily -continue monitor strict I&Os, daily weights -net -3 L overnight, net -6 0.5 kg length stay 4. Acute hyponatremia. Secondary to poor renal perfusion in the setting of congestive heart failure exacerbation, continue monitor closely while actively diuresing 5. Acute kidney injury on chronic kidney disease stage 3. The creatinine 1.5, most likely secondary to renal hypoperfusion in the setting of congestive heart failure and poor cardiac output, baseline creatinine 1.1-1.2, currently 1.3, continue to monitor closely while actively diuresing 6. Acute on chronic hypoxic respiratory failure. Evidenced by SpO2 of 88% on 8 L nasal cannula, up titrated to 11 liters/minute high-flow oxygen, with objective tachypnea and shortness of breath with labored breathing, secondary to a combination of COPD exacerbation, heart failure, pneumonia -her baseline oxygen requirements are 3-5 L, clearly requiring more than that while hypoxic -continue supplemental oxygen 7. Atrial fibrillation with acute rapid ventricular response. New diagnosis, suboptimal echocardiogram, most likely provoked in the setting of conditions outlined above -continue metoprolol and Eliquis -will need outpatient cardiology follow-up 8. Hypertension. Chronic, continue home medications 9. Morbid obesity. Increases patient's risk of worsening morbidity and/or mortality with BMI of 35.7 Diet. Cardiac Prophylaxis. High risk patient, on Eliquis Code. Do full Disposition. Anticipated discharge is 01/14 versus 01/15, pending stabilization of conditions outlined above High-level medical complexity, high risk of worsening morbidity and/or mortality secondary to the issues outlined above. Subjective: Patient reports that she is still somewhat weak, but her shortness of breath is improving Objective: Vital Signs Temp Pulse Resp BP Pulse Ox 36.6 C 98 14 115/85 H 98 01/13/18 16:49 01/13/18 16:57 01/13/18 16:57 01/13/18 16:49 01/13/18 16:57 Microbiology 01/07/18 22:45 Blood Culture - Final Blood 01/07/18 23:12 Blood Culture - Final Blood Laboratory Results 01/13/18 08:46 01/13/18 08:46 01/12/18 01/13/18 01/14/18 05:59 05:59 05:59 Intake Total 500 1850 Output Total 2600 5025 1100 Balance -2100 -3175 -1100 PT 15.4 SEC (12.0-15.0) H 01/07/18 21:00 INR 1.20 (0.83-1.16) H 01/07/18 21:00 - Pending Discharge Pending Discharge Within 48 Hours: Yes Pending Discharge Date: 01/15/18 Pending Discharge Time: 11:00 - Physical Exam Constitutional: no apparent distress, not in pain, chronically ill appearing, obese, No uncomfortable Cardiovascular: irregularly irregular, edema (1+ bilateral lower extremities), No systolic murmur, No tachycardia Respiratory: reduced air movement (Right base), inspiratory crackles, No expiratory wheeze, No bronchial breath sounds, No aegophony Gastrointestinal: normoactive bowel sounds, soft, non-tender abdomen, no palpable masses Neurologic: AAOx3, sensation intact bilaterally, No weakness Psychiatric: not anxious, not encephalopathic, flat affect, No agitated ICD10 Worksheet Patient Problems: Problems Problem Status Onset Atrial fibrillation Acute Pleural effusion Acute Pneumonia Acute Shortness of breath Acute chronic disease mgmt/transitional care Acute
[2018-01-13] MEDS ORDERED: IPRATROPIUM/ALBUTEROL 3 ML DEYVIAL IH PRN (17:48)
[2018-01-13] MEDS: clonazePAM 0.5 MG TAB PO PRN (21:07)
[2018-01-14] MEDS: ACETAMINOPHEN 325 MG TAB PO PRN ×3 (07:50→20:46)
[2018-01-14] MEDS: ONDANSETRON 4 MG/2 ML VIAL IVP PRN ×2 (07:50→13:00)
[2018-01-14] MEDS ORDERED: ALBUTEROL 3 ML DEYVIAL IH PRN (08:38)
[2018-01-14] MEDS: ROSUVASTATIN CALCIUM 10 MG TAB PO SCH (09:08)
[2018-01-14] MEDS: METOPROLOL TARTRATE 50 MG TAB PO SCH ×2 (09:08→20:46)
[2018-01-14] MEDS: SENNOSIDES/DOCUSATE SODIUM TAB PO SCH ×2 (09:08→20:48)
[2018-01-14] MEDS: CETIRIZINE 10 MG TAB PO SCH (09:08)
[2018-01-14] MEDS: ESCITALOPRAM OXALATE 10 MG TAB PO SCH (09:09)
[2018-01-14] MEDS: FUROSEMIDE 40 MG/4 ML VIAL IVP SCH ×2 (09:09→15:36)
[2018-01-14] MEDS: FENOFIBRATE 145 MG TAB PO SCH (09:09)
[2018-01-14] MEDS: APIXABAN 5 MG TAB PO SCH ×2 (09:09→20:46)
[2018-01-14] MEDS: POLYETHYLENE GLYCOL 3350 17 GM PKT PO SCH (09:09)
[2018-01-14] MEDS: TIOTROPIUM INHALER 18 MCG/DOSE 5 DOSE/MDI IH SCH (09:57)
[2018-01-14] MEDS: FLUTICASONE/SALMETER 500/50MCG DISKUS IH SCH ×2 (09:58→20:37)
--- NOTE | 2018-01-14 14:13 | ASMTCMCOM ---
CM Note CM Note Notes: CM spoke w/ Lay and discussed d/c plans. Lay reports that pt is not ready for palliative at this time. Lay reports that she plans on speaking w/ Myla at the [facility] and plans on bringing over a chair for pt to use while she is there. CM spoke w/ [facility] and discussed an anticipated d/c date for Wednesday. CM sent over updates. CM to follow. Plan: [facility] Date Signed: 01/14/2018 02:12 PM Electronically Signed By:LUZMA Singh
[2018-01-14] MEDS: clonazePAM 0.5 MG TAB PO PRN (22:01)
--- NOTE | 2018-01-14 22:15 | HOSPPROG ---
Hospitalist Progress Note Assessment/Plan: Assessment: 72-year-old female presents with acute shortness of breath secondary to acute COPD exacerbation, community-acquired pneumonia, acute right- sided diastolic congestive heart failure exacerbation Plan: 1. Acute COPD exacerbation. No expiratory wheezes or bronchial breath sounds, resolved -status post 6 days of prednisone, discontinued -continue duo nebs as needed -will need to be established with outpatient beauty director -cont PRN albuterol, spiriva, advair at DC 2. Community-acquired pneumonia. Present on admission, chest x-ray with definitive right lower lobe infiltrate -status post 7 days of levofloxacin, discontinued -given density of infiltrate, recommend f/u CXR in 4-6 weeks 3. Acute diastolic right-sided congestive heart failure exacerbation. Remains somewhat hypervolemic, lower extremity edema, inspiratory crackles in the bases with reduced air movement in the right base -continue IV Lasix 40 mg twice daily -continue monitor strict I&Os, daily weights -net -2.3 L overnight, net -8 kg length stay -plan to adjust to PO lasix in AM and ensure she is net even to negative over 24hrs prior to DC 4. Acute hyponatremia. Secondary to poor renal perfusion in the setting of congestive heart failure exacerbation, continue monitor closely while actively diuresing 5. Acute kidney injury on chronic kidney disease stage 3. The creatinine 1.5, most likely secondary to renal hypoperfusion in the setting of congestive heart failure and poor cardiac output, baseline creatinine 1.1-1.3, currently 1.5, continue to monitor closely while actively diuresing -Cr rising today, reduce to PO lasix 6. Acute on chronic hypoxic respiratory failure. Evidenced by SpO2 of 88% on 8 L nasal cannula, up titrated to 11 liters/minute high-flow oxygen, with objective tachypnea and shortness of breath with labored breathing, secondary to a combination of COPD exacerbation, heart failure, pneumonia -her baseline oxygen requirements are 3-5 L, clearly requiring more than that while hypoxic -continue supplemental oxygen, weaned to 6LPM today 7. Atrial fibrillation with acute rapid ventricular response. New diagnosis, suboptimal echocardiogram, most likely provoked in the setting of conditions outlined above -continue metoprolol and Eliquis -will need outpatient cardiology follow-up 8. Hypertension. Chronic, continue home medications 9. Morbid obesity. Increases patient's risk of worsening morbidity and/or mortality with BMI of 35.2 Diet. Cardiac Prophylaxis. High risk patient, on Eliquis Code. Full Disposition. Anticipated discharge is 01/15 vs. 01/16, pending stabilization of conditions outlined above Subjective: legs remain heavy, less SOB and not coughing as much Objective: Vital Signs Temp Pulse Resp BP Pulse Ox 36.5 C 85 16 123/65 H 98 01/14/18 20:00 01/14/18 20:46 01/14/18 20:37 01/14/18 20:46 01/14/18 20:37 Laboratory Results 01/13/18 08:46 01/14/18 03:22 01/13/18 01/14/18 01/15/18 05:59 05:59 05:59 Intake Total 5670 607 0615 Output Total 5025 2750 1200 Balance -3175 -2350 0 PT 15.4 SEC (12.0-15.0) H 01/07/18 21:00 INR 1.20 (0.83-1.16) H 01/07/18 21:00 - Pending Discharge Pending Discharge Within 48 Hours: Yes Pending Discharge Date: 01/16/18 Pending Discharge Time: 11:00 - Physical Exam Constitutional: no apparent distress, not in pain, chronically ill appearing, obese, No uncomfortable Cardiovascular: regular rate and rhythym, no murmur, rub, or gallop (distant heart sounds), edema (1+ bilat LE) Respiratory: inspiratory crackles, respiratory distress, No reduced air movement , No expiratory wheeze, No bronchial breath sounds Gastrointestinal: normoactive bowel sounds, soft, non-tender abdomen, no palpable masses Neurologic: AAOx3, No weakness Psychiatric: interacting appropriately, not anxious, not encephalopathic, thought process linear ICD10 Worksheet Patient Problems: Problems Problem Status Onset Atrial fibrillation Acute Pleural effusion Acute Pneumonia Acute Shortness of breath Acute chronic disease mgmt/transitional care Acute
[2018-01-15] MEDS: ACETAMINOPHEN 325 MG TAB PO PRN ×4 (06:01→20:30)
[2018-01-15] MEDS: POLYETHYLENE GLYCOL 3350 17 GM PKT PO SCH (08:38)
[2018-01-15] MEDS: METOPROLOL TARTRATE 50 MG TAB PO SCH ×2 (08:39→20:32)
[2018-01-15] MEDS: ROSUVASTATIN CALCIUM 10 MG TAB PO SCH (08:39)
[2018-01-15] MEDS: ESCITALOPRAM OXALATE 10 MG TAB PO SCH (08:40)
[2018-01-15] MEDS: SENNOSIDES/DOCUSATE SODIUM TAB PO SCH ×2 (08:40→19:29)
[2018-01-15] MEDS: FENOFIBRATE 145 MG TAB PO SCH (08:40)
[2018-01-15] MEDS: APIXABAN 5 MG TAB PO SCH ×2 (08:41→20:33)
[2018-01-15] MEDS: CETIRIZINE 10 MG TAB PO SCH (08:41)
[2018-01-15] MEDS: TIOTROPIUM INHALER 18 MCG/DOSE 5 DOSE/MDI IH SCH ×2 (08:58→09:00)
[2018-01-15] MEDS: FLUTICASONE/SALMETER 500/50MCG DISKUS IH SCH ×2 (09:00→21:18)
[2018-01-15] MEDS ORDERED: FUROSEMIDE 40 MG TAB PO SCH (09:00)
--- NOTE | 2018-01-15 09:16 | HOSPPROG ---
Hospitalist Progress Note Assessment/Plan: #Acute COPD exacerbation: at baseline. At baseline oxygen #Acutely decompensated RHF/diastolic HR: hold Lasix with AUBREE, alkalosis #Atrial fibrillation with RVR: BB 75mg BID, CHADs 3, Eliquis #CAP: completed course abx #Acute on chronic hypoxic resp failure: BL 3-5. Multifactorial with infection, COPD exacerbation. Goal O2 sat 88-90% #HTN: resume home meds #Metabolic alkalosis: chronic resp failure, over-diuresis #AUBREE: Cr to 1.7 today. Holding lasix #Deconditioning: PT/OT, plan for DC to [facility] #Diet: 2gm sodium #DVT: Eliquis #Disp: cont inpatient admission, monitor Cr, telemetry Subjective: coughing up brown sputum, feeling less SOB Objective: Vital Signs Temp Pulse Resp BP Pulse Ox 37.0 C 88 18 91/63 L 93 01/15/18 08:49 01/15/18 09:08 01/15/18 09:08 01/15/18 08:49 01/15/18 09:08 Laboratory Results 01/13/18 08:46 01/15/18 03:27 01/14/18 01/15/18 01/16/18 05:59 05:59 05:59 Intake Total 400 1425 Output Total 2750 1400 400 Balance -2350 25 -400 PT 15.4 SEC (12.0-15.0) H 01/07/18 21:00 INR 1.20 (0.83-1.16) H 01/07/18 21:00 - Time Spent With Patient Time Spent with Patient: greater than 35 minutes Time Spent with Patient: Greater than 35 minutes spent on this patients care, greater than 50% of time spent counseling, educating, and coordinating care regarding the above mentioned plan. - Physical Exam Constitutional: chronically ill appearing, obese Eyes: PERRL Ears, Nose, Mouth, Throat: moist mucous membranes, hearing normal Cardiovascular: irregularly irregular, edema (+ 3 ankles edema, BL ) Respiratory: no respiratory distress, reduced air movement (decreased BS throughout. No wheezing) Gastrointestinal: normoactive bowel sounds Genitourinary: no bladder fullness Skin: warm Musculoskeletal: full muscle strength Neurologic: AAOx3, CN II-XII Intact Psychiatric: interacting appropriately ICD10 Worksheet Patient Problems: Problems Problem Status Onset Atrial fibrillation Acute Pleural effusion Acute Pneumonia Acute Shortness of breath Acute chronic disease mgmt/transitional care Acute
--- NOTE | 2018-01-15 11:38 | ASMTCMCOM ---
CM Note CM Note Notes: Discussed in rounds. Patient has discharge plan to go to [facility] in [place] when medically cleared for discharge. Likely Wednesday. CM to follow. Plan: SNF Date Signed: 01/15/2018 11:37 AM Electronically Signed By:Guillermina Howard RN
[2018-01-15] MEDS: ONDANSETRON 4 MG/2 ML VIAL IVP PRN (12:07)
[2018-01-16] MEDS: clonazePAM 0.5 MG TAB PO PRN ×2 (01:06→22:05)
[2018-01-16] MEDS: ACETAMINOPHEN 325 MG TAB PO PRN ×4 (01:13→21:13)
[2018-01-16] MEDS: ESCITALOPRAM OXALATE 10 MG TAB PO SCH (08:18)
[2018-01-16] MEDS: CETIRIZINE 10 MG TAB PO SCH (08:18)
[2018-01-16] MEDS: METOPROLOL TARTRATE 50 MG TAB PO SCH ×2 (08:18→21:11)
[2018-01-16] MEDS: APIXABAN 5 MG TAB PO SCH ×2 (08:19→21:11)
[2018-01-16] MEDS: FENOFIBRATE 145 MG TAB PO SCH (08:19)
[2018-01-16] MEDS: ROSUVASTATIN CALCIUM 10 MG TAB PO SCH (08:19)
[2018-01-16] MEDS: FLUTICASONE/SALMETER 500/50MCG DISKUS IH SCH ×2 (09:35→20:43)
[2018-01-16] MEDS: TIOTROPIUM INHALER 18 MCG/DOSE 5 DOSE/MDI IH SCH (09:35)
[2018-01-16] MEDS: SENNOSIDES/DOCUSATE SODIUM TAB PO SCH ×2 (10:28→21:10)
[2018-01-16] MEDS: POLYETHYLENE GLYCOL 3350 17 GM PKT PO SCH (10:28)
--- NOTE | 2018-01-16 11:29 | HOSPPROG ---
Hospitalist Progress Note Assessment/Plan: #Acute COPD exacerbation: at baseline. At baseline oxygen #Metabolic alkalosis: chronic resp failure, over-diuresis. Check ABG as may be retaining CO2 #Acutely decompensated RHF/diastolic HR: hold Lasix with AUBREE, alkalosis. May resume Lasix tomorrow at reduced-dose #Atrial fibrillation with RVR: resolved. Metoprolol 75mg BID, CHADs 3, Eliquis #CAP: completed course abx #Acute on chronic hypoxic resp failure: BL 3-5. Multifactorial with infection, COPD exacerbation. Goal O2 sat 88-90% #HTN: resume home meds #AUBREE: Cr to 1.5 today. Holding lasix #Deconditioning: PT/OT, plan for DC to [facility] rehab #Diet: 2gm sodium #DVT: Eliquis #Disp: cont inpatient admission, monitor Cr, telemetry. May DC in next 1-2 days once labs stable Subjective: fatigued. Worked with PT this morning Objective: Vital Signs Temp Pulse Resp BP Pulse Ox 36.8 C 95 18 115/64 94 01/16/18 07:10 01/16/18 09:38 01/16/18 09:38 01/16/18 07:10 01/16/18 09:38 Laboratory Results 01/13/18 08:46 01/16/18 03:39 01/15/18 01/16/18 01/17/18 05:59 05:59 05:59 Intake Total 1425 1430 Output Total 1400 850 500 Balance 25 580 -500 PT 15.4 SEC (12.0-15.0) H 01/07/18 21:00 INR 1.20 (0.83-1.16) H 01/07/18 21:00 - Time Spent With Patient Time Spent with Patient: greater than 35 minutes Time Spent with Patient: Greater than 35 minutes spent on this patients care, greater than 50% of time spent counseling, educating, and coordinating care regarding the above mentioned plan. - Physical Exam Constitutional: obese Eyes: PERRL Ears, Nose, Mouth, Throat: moist mucous membranes Cardiovascular: irregularly irregular, edema (+ 2 pitting edema over shins) Respiratory: reduced air movement Skin: warm Neurologic: AAOx3, CN II-XII Intact ICD10 Worksheet Patient Problems: Problems Problem Status Onset chronic disease mgmt/transitional care Acute Atrial fibrillation Acute Shortness of breath Acute Pneumonia Acute Pleural effusion Acute
[2018-01-17] MEDS: ACETAMINOPHEN 325 MG TAB PO PRN ×2 (05:06→10:35)
--- NOTE | 2018-01-17 08:21 | PDIAF ---
- Diagnosis Diagnosis: COPD exacerbation Code Status: Do Not Resuscitate - Medication Management Discharge Medications: Medications to Continue on Transfer Albuterol Hfa Anes Only [Proair Hfa Icu (*)] 1 - 2 puffs IH QID PRN 01/08/18 [ Last Taken Unknown] Albuterol [Proventil Neb] 3 ml IH QID PRN 01/08/18 [Last Taken Unknown] Aspirin [Aspirin 325 mg (*)] 325 mg PO DAILY 01/08/18 [Last Taken 01/07/18] Cetirizine [ZyrTEC 10 mg (*)] 10 mg PO DAILY 01/08/18 [Last Taken 01/07/18] Escitalopram Oxalate [Lexapro] 10 mg PO DAILY 01/08/18 [Last Taken 01/07/18] Famotidine [Pepcid 20 MG (*)] 20 mg PO BID PRN 01/08/18 [Last Taken Unknown] Fenofibrate [Tricor 145 mg (*)] 145 mg PO DAILY 01/08/18 [Last Taken 01/07/18] Fluticasone/Salmeter 500/50Mcg [Advair 500/50 (*)] 1 puffs IH BID 01/08/18 [ Last Taken 01/07/18] Metoprolol Tartrate [Lopressor 50 mg (*)] 50 mg PO BID 01/08/18 [Last Taken ] Ramipril [Altace] 10 mg PO DAILY 01/08/18 [Last Taken 01/07/18] Rosuvastatin Calcium [Crestor 10mg (RX)] 10 mg PO DAILY 01/08/18 [Last Taken ] Sucralfate [Carafate 1 GM (*)] 1 gm PO TID PRN 01/08/18 [Last Taken Unknown] Tiotropium Inhaler [Spiriva Inhaler] 1 inh IH DAILY@12 01/08/18 [Last Taken ] amLODIPine BESYLATE [Norvasc 5 mg (*)] 5 mg PO DAILY 01/08/18 [Last Taken ] clonazePAM [Klonopin (*)] 0.25 - 0.5 mg PO HS PRN 01/08/18 [Last Taken Unknown] Discharge Medications: Refer to the Discharge Home Medication list for PRN reason. - Orders Services needed: Registered Nurse, Certified [employer] Licensee, Physical Therapy, Occupational Therapy Isolation Type: None Diet Recommendation: cardiac -low fat low salt Additional Instructions: Recommend sleep study for ENEIDA. - Labs/Radiology BMP Date: 01/19/18 (BL Cr 1.3-1.5. Monitor with Lasix) - Follow Up Care Current Providers and Referrals: Leonard Chaparro MD [Medical Doctor] - 01/18/18 10:30 am () Patient,NotPresent [Unknown] - As per Instructions
[2018-01-17] MEDS: METOPROLOL TARTRATE 50 MG TAB PO SCH (08:56)
[2018-01-17] MEDS: ESCITALOPRAM OXALATE 10 MG TAB PO SCH (08:56)
[2018-01-17] MEDS: APIXABAN 5 MG TAB PO SCH (08:56)
[2018-01-17] MEDS: FENOFIBRATE 145 MG TAB PO SCH (08:57)
[2018-01-17] MEDS: CETIRIZINE 10 MG TAB PO SCH (08:57)
[2018-01-17] MEDS: ROSUVASTATIN CALCIUM 10 MG TAB PO SCH (08:57)
[2018-01-17] MEDS ORDERED: FUROSEMIDE 20 MG TAB PO SCH (09:00)
[2018-01-17] MEDS: POLYETHYLENE GLYCOL 3350 17 GM PKT PO SCH (09:01)
[2018-01-17] MEDS: SENNOSIDES/DOCUSATE SODIUM TAB PO SCH (09:01)
[2018-01-17] MEDS: FLUTICASONE/SALMETER 500/50MCG DISKUS IH SCH (09:07)
[2018-01-17] MEDS: TIOTROPIUM INHALER 18 MCG/DOSE 5 DOSE/MDI IH SCH (09:08)
--- NOTE | 2018-01-17 10:54 | ASMTCMCOM ---
CM Note CM Note Notes: 01/17/2018 Case Management Note Discussed case with Kevin from palliative care. Please see palliative care note. Faxed referral to [facility] for outpatient follow up. Case Management d/c poc: to [facility] with [facility]. Date Signed: 01/17/2018 10:53 AM Electronically Signed By:Estrellita Prajapati RN
[2018-01-17 11:00] VITALS: BP 120/59
--- NOTE | 2018-01-17 12:43 | GDS ---
[f rep st] DISCHARGE SUMMARY DISCHARGE DIAGNOSES: 1. Ewuvm-ld-lpngigv hypoxemic respiratory failure. 2. Acute chronic obstructive pulmonary disease exacerbation. 3. Acutely decompensated right heart failure/diastolic heart failure. 4. Metabolic alkalosis. 5. Atrial fibrillation with rapid ventricular response. 6. Community-acquired pneumonia. 7. Hypertension. 8. Acute kidney injury. 9. Deconditioning. HISTORY OF PRESENT ILLNESS: A 72-year-old female with obesity, COPD, chronic hypoxemic respiratory failure, and hypertension, presenting with cough and shortness of breath. She noted 5 days prior to admission that she developed a new cough and some shortness of breath. It was productive with yellow/green sputum. She sees Dr. Chaparro for COPD and uses 3-5 L chronically. She has had at least 3 COPD exacerbations in the past year. HOSPITAL COURSE BY PROBLEM: 1. Omclr-xo-awpsxeh hypoxemic respiratory failure: Multifactorial with community-acquired pneumonia and COPD exacerbation. Now stable on her home oxygen, 3-5L. 2. CAP: Completed antibiotic course. 3. Acutely decompensated right heart failure/diastolic heart failure: Suspect diastolic heart failure with longstanding AFib. She has mild TR on echocardiogram. Was diuresed with subsequent acute kidney injury and alkalosis, so we held for few days. Resume just 20 mg of p.o. Lasix with repeat BMP in 2 days. Needs eval for ENEIDA. 4. Atrial fibrillation: Went into RVR here. Increased her metoprolol to 75 mg from 50 b.i.d. CHADS score 3. We will continue Eliquis. 5. Hypertension: Resume home medications. 6. AUBREE: Creatinine baseline is 1.1 to 1.3. This was elevated to 1.5 with diuresis. Cr now at baseline. Monitor closely with diuresis. 7. Metabolic alkalosis: has chronic respiratory failure, compounded by diuresis. Checked ABG, which showed some retention of CO2, but denies NIPPV. Needs outpatient sleep study to eval for ENEIDA. 8. Deconditioning: PT/OT. She is going to [facility] rehab. DISPOSITION: Patient is stable for discharge to [facility] for continuous rehab. MEDICATIONS: Change in medications: Metoprolol 75 mg b.i.d. FOLLOWUP: 1. Dr. Chaparro. 2. Outpatient sleep study for ENEIDA, CPAP. 3. Repeat BMP on 01/19/2018, to monitor alkalosis and kidney disease. PHYSICAL EXAMINATION: VITAL SIGNS: Today, temperature 37, blood pressure 120/ 53, heart rate is 86, respirations 20, 99% on 3 L. GENERAL: Obese female, no acute distress, talkative. HEENT: PERRLA. Moist mucous membranes. CV: Irregularly irregular. +1 ankle edema bilaterally. ABDOMEN: Obese, soft, nontender, nondistended. Positive bowel sounds. : No Casarez. MUSCULOSKELETAL: Moving all 4 extremities. NEURO: 2 through 12 intact. PSYCH : Alert and oriented x3. /[id number]/MODL MTDD
--- NOTE | 2018-01-17 14:04 | ASDISCHSUM ---
Discharge Information Plan Status:SNF Medically Cleared to Leave:01/17/2018 Discharge Date:01/17/2018 CM D/C Disposition:Shelter Facility ADT D/C Disposition:Shelter Facility Projected Discharge Date:01/12/2018 11:00 AM Transportation at D/C:Wheelchair Van Discharge Delay Reason: Follow-Up Date:01/12/2018 11:00 AM Discharge Slot: Final Diagnosis: Placement Information Referral Type:Assisted Living Residence Referral ID:[id number] Provider Name: Address 1: Phone Number: Address 2: Fax Number: City: [facility] Factors: State: Referral Type:*Jail/SNF Referral ID:[id number] Provider Name:[facility] Address 1:[address] Address 2: City:[place] Selection Factors: State:[place] Referral Type:Palliative Care Referral ID:[id number] Provider Name:[facility] Address 1:[address] Phone Number: Address 2: Fax Number: [facility]:[place] Selection Factors: State:[place] Patient Contact Information Contact Name:WALKER Relationship:Daughter Address: Home Phone: City: Alternate Phone: State/Zip Code: Email: Financial Information Financial Class:Medicare Primary Plan Desc:MEDICARE INPATIENT Primary Plan Number:[id number] Secondary Plan Desc:SANDRA/KALPESH SUPPLEMENT Secondary Plan Number:[id number] Assessment Information [facility] CM Progress Note CM Note CM Note Notes: Patient admitted for PNA superimposed on severe COPD. I met with patient, she lives at [facility]. She does not really have much assistance there, just some housekeeping help. She is normally independent. I explained that [facility] will likely require an evaulation if she is here more than 24 hours. Patient has a daughter Erica who is local and supportive. I don't think patient will have any d/c needs, but we will assist if any arise. Date Signed: 01/08/2018 01:33 PM Electronically Signed By:Marcela Degroot RN LACE GREGORIO Length of stay for Answers: 7-13 days current admission Acuity / Level of Answers: Yes Care: Did the patient have an inpatient admission? Comorbidities - select Answers: Chronic pulmonary disease all that apply Other Notes: HTN # of Emergency department Answers: 1-2 visits in the last 6 months Social determinants Answers: Mental health diagnosis (anxiety, depression, pers onality disorders, etc.) Score: 15 Date Signed: 01/17/2018 02:03 PM Electronically Signed By:Estrellita Prajapati RN [facility] CM Progress Note CM Note CM Note Notes: 01/10/2018 Case Management Note Met w/pt this morning. Pt was admitted for PNA and AF. Pt lives at [facility]. She takes three meals a day in the dining bowles. She also has light housekeeping. She is independent in her ADL's and does not use any med management services. Pt has 2 daughters involved in her cares. Daughter Kusum lives in [place] and can be reached at [phone]. Daughter Jennifer lives in [place] and can be reached at [phone]. Case Management d/c poc: to be determined pending outcome of PT evals over the next few days. Pt may require home care. Case Management to follow. Date Signed: 01/10/2018 12:44 PM Electronically Signed By:Estrellita Prajapati RN [facility] CM Progress Note CM Note CM Note Notes: 01/10/2018 Case Management Note Discussed patient d/c with PT. PT recommending SNF. Discussed recommendations with patient. Discussed with daughter Kusum who is in agreement. Transitional Care RN also recommending SNF rehab. Discussed options with Kusum and sent referrals at her request for [facility] [employer], [employer], [facility], [facility], [facility] and [facility]. Spoke with daughter Jennifer who lives in [place]. Jennifer is arriving tomorrow late morning and plans to arrive at [facility] after lunch. Discussed SNF rehabs with Jennifer who is in agreement. Case Management d/c poc: to SNF rehab pending acceptance and authorization. Case Management to follow. Date Signed: 01/10/2018 03:40 PM Electronically Signed By:Estrellita Prajapati RN [facility] CM Progress Note CM Note CM Note Notes: 01/11/2018 Case Management Note Met w/pt daughter Jennifer to discuss accepting SNF facilities. Jennifer and sister Kusum to visit [facility] and tomorrow morning to make final decision. Faxed updates via [employer]. After discussion, Jennifer requested Palliative Care Consult. Notified RN and MD of request. Case Management d/c poc: to SNF rehab pending family choice. Case Management to follow. Date Signed: 01/11/2018 04:52 PM Electronically Signed By:Estrellita Prajapati RN [facility] Progress Note CM Note CM Note Notes: 01/12/2018 Case Management Note Met w/Jennifer and Anna. Rodriguez to [facility], currently considering [facility] and [facility] and [facility] in [place]. Pt declined palliative meeting d/t fatigue today. Case Management d/c poc: to SNF pending family choice with palliative consult. Case Management to follow. Date Signed: 01/12/2018 05:00 PM Electronically Signed By:Esrtellita Prajapati RN [facility] CM Progress Note CM Note CM Note Notes: Pts case discussed in morning rounds. VALERIY spoke w/ Kevin regarding family's choice to use palliative after d/c from SNF. VALERIY provided pts daughter Erica w/ brochures for [facility] and [facility]. VALERIY spoke w/ Erica regarding pts PCP. Erica reports that pt has stopped seeing Dr. Esparza and have been seeing an MD at [facility]. VALERIY to discuss further w/ family tomorrow regarding palliative and SNF choice. Plan: TBD Date Signed: 01/13/2018 02:58 PM Electronically Signed By:LUZMA Singh [facility] VALERIY Progress Note CM Note CM Note Notes: VALERIY spoke w/ daughter and family has chosen [facility]. CM called Myla, at the [facility] and notified them of their choice. CM to follow up tomorrow on their selection for outpatient palliative. CM to follow. Plan: The Signed: 01/13/2018 04:38 PM Electronically Signed By:LUZMA Singh [facility] CM Progress Note CM Note CM Note Notes: CM spoke w/ Lay and discussed d/c plans. Lay reports that pt is not ready for palliative at this time. Lay reports that she plans on speaking w/ Myla at the [facility] and plans on bringing over a chair for pt to use while she is there. CM spoke w/ [facility] and discussed an anticipated d/c date for Wednesday. CM sent over updates. CM to follow. Plan: The Signed: 01/14/2018 02:12 PM Electronically Signed By:LUZMA Singh [facility] VALERIY Progress Note VALERIY Note VALERIY Note Notes: Discussed in rounds. Patient has discharge plan to go to [facility] in [place] when medically cleared for discharge. Likely Wednesday. CM to follow. Plan: [facility] Signed: 01/15/2018 11:37 AM Electronically Signed By:Guillermina Howard RN [facility] CM Progress Note CM Note CM Note Notes: 01/17/2018 Case Management Note Discussed case with Kevin from palliative care. Please see palliative care note. [facility]. Case Management d/c poc: to [facility]. Date Signed: 01/17/2018 10:53 AM Electronically Signed By:Estrellita Prajapati RN Case Management Discharge Plan Note Case Management Discharge Discharge Order Complete? Answers: Yes Patient to Obtain Answers: Other Notes: [facility] Medications Transportation Arranged Answers: Other Notes: arranged by [facility] Transport will Pick (Date 01/17/2018 04:30 PM & Time) Faxed Final Orders Answers: Yes Agency/Facility Transfer Answers: Yes Notes: faxed to the [facility] Report Printed & Faxed to Receiving Agency Family Notified Answers: Yes Notes: by phone Discharge Comments Notes: [id number] Case Management Note Pt to d/c to [facility] with [facility] to follow. Notified Jennifer at her request of d/c time. [facility] arranged transport. W/C with [facility]. JANNETH called report. faxed final orders. Date Signed: 01/17/2018 02:02 PM Electronically Signed By:Estrellita Prajapati RN Intervention Information
== END 2018-01-17 15:20 | DRG 193 ==
LOC: EDUNIT# → OBSVTOIN 22:41 → F2W 23:47
PROVIDERS: ADMIT Student in an Organized Health Care Education/Training Program; ATTEND Student in an Organized Health Care Education/Training Program
DX: J18.9 Pneumonia, unspecified organism (principal); J44.1 Chronic obstructive pulmonary disease with (acute) exacerbation; J96.21 Acute and chronic respiratory failure with hypoxia; I11.0 Hypertensive heart disease with heart failure; I50.31 Acute diastolic (congestive) heart failure; N17.9 Acute kidney failure, unspecified; E87.2 Acidosis; I48.91 Unspecified atrial fibrillation; E87.1 Hypo-osmolality and hyponatremia; E87.5 Hyperkalemia; E66.01 Morbid (severe) obesity due to excess calories; Z68.35 Body mass index [BMI] 35.0-35.9, adult; Z99.81 Dependence on supplemental oxygen; Z87.891 Personal history of nicotine dependence
CPT/HCPCS: 97110-GP; 97116-GP; 97161-GP; 97166-GO; 97530-GO; 97530-GP; 97535-GO; G8978-GO-CL; G8978-GP-CK; G8979-GO-CK; G8979-GP-CI; J1650; J1940; J1956; J2405; J2550; J2930; J7512; J7613

== ENCOUNTER 2018-04-26 14:27 | Inpatient (IN) | payer OTHER, MEDICARE ==
--- NOTE | 2018-04-26 15:30 | EDPHY ---
H & P Stated Complaint: BIBA for ?nosebleed vs spitting up blood Source: Patient Exam Limitations: No limitations - Personal History Current Tetanus/Diphtheria Vaccine: Unsure Current Tetanus Diphtheria and Acellular Pertussis (TDAP): Unsure - Medical/Surgical History Hx Asthma: No Hx Chronic Respiratory Disease: Yes Hx Diabetes: No Hx Cardiac Disease: No Hx Renal Disease: No Hx Cirrhosis: No Hx Alcoholism: No Hx HIV/AIDS: No Hx Splenectomy or Spleen Trauma: No Other PMH: anemia, anxiety, obesity, bronchitis, COPD, HTN, hypoxia, limited mobility, hyperlipidemia - Social History Smoking Status: Former smoker Time Seen by Provider: 04/26/18 15:29 HPI/ROS: HPI: This is a 72-year-old female who presents with Chief Complaint: BIBA for ?nosebleed vs spitting up blood Location: Mouth Quality: Spitting up blood Duration: 1 tooth 3 hr prior to arrival Signs and Symptoms: no shortness of breath at rest, no shortness of breath on exertion, no cough, no chest pain, no palpitations, no lower extremity edema, no wheezing, no orthopnea, no paroxysmal nocturnal dyspnea, no fever, no injury/ trauma, no hemoptysis, no carpal pedal spasms Timing: Acute Severity: Mild Context: Patient has a history of atrial fibrillation and chronic oxygen use, on Eliquis and aspirin, presents via ambulance from assisted facility for further investigation a nose bleed versus spitting up blood that started approximately 1-3 hours prior to arrival. Patient reports that she is supposed to use saline nasal drops to prevent nasal mucosa dryness due to chronic oxygen use but has not been using these. She reports that she coughed earlier and felt like she had phlegm in the back of her throat. When she spit out she noted that there was blood tinged mucus. She is unsure if she is coughing upper fit is coming from her nose. She denies any chest pain, dizziness, shortness of breath. She reports that her last laboratory studies were performed approximately 2 weeks ago. She denies any easy bruising, bleeding gums. Patient is very talkative and reports that her assisted facility sent her to the emergency room even though she"feels fine." Modifying Factors: None Comment: ROS: see HPI Constitutional: No fever, no chills, no weight loss Eyes: No blurred vision Respiratory: No shortness of breath, no cough Cardiovascular: No chest pain, no palpitations, no lower extremity edema Gastrointestinal: No nausea, no vomiting, no diarrhea Genitourinary: No dysuria Extremities: No myalgias Neurologic: No weakness, no numbness Skin: No rashes Hematologic: No bruising, + bleeding MEDICAL/SURGICAL/SOCIAL HISTORY: Medical/surgical history: anemia, anxiety, obesity, bronchitis, COPD, HTN, hypoxia on supplemental oxygen, limited mobility, hyperlipidemia Social history: Lives at assisted facility. CONSTITUTIONAL: Extremely polite and cooperative chronically ill-appearing elderly white female, awake and alert, no obvious distress HEENT: Atraumatic and normocephalic, PERRL, EOMI. Nares patent; dried anterior epistaxis on right near noted, no active bleeding; no nasal mucosal edema. Nasal cannula present in both nares. Tympanic membranes clear. Oropharynx clear , posterior pharynx shows no blood or edema; no exudate and moist pink mucosa. Airway patent. No lymphadenopathy. No meningismus. Cardiovascular: Normal S1/S2, regular rate, regular rhythm, without murmur rub or gallop. PULMONARY/CHEST: Symmetrical and nontender. Clear to auscultation bilaterally. Good air movement. No accessory muscle usage. ABDOMEN: Soft, nondistended, nontender, no rebound, no guarding, no peritoneal signs, no masses or organomegaly. No CVAT. EXTREMITIES: 2/2 pulses, strength 5/5, no deformities, no clubbing, no cyanosis or edema. NEUROLOGICAL: no focal neuro deficits. GCS 15. SKIN: Warm and dry, no erythema. no rash. Good capillary refill. (AugustoXenia chau) Constitutional: Initial Vital Signs Temperature (C) 36.8 C 04/26/18 14:46 Heart Rate 94 04/26/18 14:46 Respiratory Rate 16 04/26/18 14:46 Blood Pressure 104/76 04/26/18 14:46 O2 Sat (%) 95 04/26/18 14:46 O2 Delivery Mode Nasal Cannula O2 (L/minute) 2 Allergies/Adverse Reactions: Penicillins Allergy (Verified 04/26/18 14:45) Anaphylaxis Home Medications: Medication Instructions Recorded Albuterol Hfa Anes Only [Proair 1 - 2 puffs IH QID PRN 01/08/18 Hfa Icu (*)] Cetirizine [ZyrTEC 10 mg (*)] 10 mg PO DAILY PRN 01/08/18 Escitalopram Oxalate [Lexapro 10 10 mg PO DAILY 01/08/18 MG] Famotidine [Pepcid 20 MG (*)] 20 mg PO BID PRN 01/08/18 Fenofibrate [Tricor 145 mg (*)] 145 mg PO DAILY 01/08/18 Fluticasone/Salmeter 500/50Mcg 1 puffs IH BID 01/08/18 [Advair 500/50 (*)] Sucralfate [Carafate 1 GM (*)] 1 gm PO QID PRN 01/08/18 Tiotropium Inhaler [Spiriva 1 inh IH DAILY@12 01/08/18 Inhaler (RX)] amLODIPine BESYLATE [Norvasc 5 mg 5 mg PO DAILY 01/08/18 (*)] clonazePAM [Klonopin (*)] 0.25 - 0.5 mg PO HS PRN 01/08/18 Acetaminophen [Tylenol ES 500 mg 1,000 mg PO Q6 PRN 04/26/18 (*)] Albuterol Sulfate [Ventolin Hfa] 2 puffs IH Q6H PRN 04/26/18 Apixaban [Eliquis] 5 mg PO BID 04/26/18 Atorvastatin Calcium [Lipitor 20 20 mg PO HS 04/26/18 mg (*)] Benzonatate 200 mg PO TID 04/26/18 Furosemide [Lasix 20 MG (*)] 20 mg PO DAILY 04/26/18 Ipratropium/Albuterol [Duoneb (*)] 3 ml IH QID PRN 04/26/18 Ipratropium/Albuterol [Duoneb (*)] 3 ml IH QID PRN 04/26/18 Metoprolol Tartrate [Lopressor 50 50 mg PO BID 04/26/18 mg (*)] guaiFENesin [Mucinex 600 MG (*)] 600 mg PO BID 04/26/18 Medical Decision Making ED Course/Re-evaluation: Vital signs reviewed and stable upon arrival. Laboratory studies and chest x-ray ordered. Dried anterior area in right near noted; no signs of active bleeding. 1610: Called by Radiology, Dr. Lee, who reports chest x-ray shows right consolidation that has been present for over year and slowly increasing in size. He is requesting CT chest with contrast for further evaluation of pneumonia. Patient is on Eliquis and low yield for pulmonary embolism. 1654: Labs reviewed. H&H 11.0/33.5. INR 1.53. No leukocytosis/ thrombocytopenia. 1700: End of shift. Signed over to Dr. Sanz pending creatinine level and CT chest to further evaluate right opacification. Final disposition to be determined. This patient was seen under the supervision of my secondary supervising physician. I evaluated care for this patient independently. Discussed this patient with Dr. Sanz. (Xenia Casas) Differential Diagnosis: Differential diagnosis includes but is not limited to hemoptysis, pulmonary embolism, atrial fibrillation, chronic anticoagulation, epistaxis, coagulopathy. (Xenia Casas) Other Provider: I evaluated and participated in the management of the patient. I also evaluated the patient independently. My co-signature indicates that I have reviewed this chart and I agree with the findings and plan of care as documented. My personal H&P findings include: 72-year-old patient with history of atrial fibrillation, on Eliquis, chronically on oxygen who presents with hemoptysis. Initially the concern was that the patient had had nose bleeding perhaps it just swallowed blood, however , patient denies any history of a nosebleed and feels that she is coughing up blood-tinged mucus. She denies any chest pain or significant shortness of breath. She is a former smoker. She has a history of asthma and COPD. On examination, patient is quite pleasant, alert, and in no respiratory distress. Breath sounds are equal bilaterally. Heart is regular rate and rhythm. Patient's CT scan demonstrates a large right hilar mass. It has an appearance concerning for malignancy. I discussed the CT scan with the patient as well as with her daughter. We will admit the patient to the hospital for further evaluation as well as close observation of her hemoptysis. (Sonam Sanz) - Data Points Laboratory Results: Laboratory Results 04/26/18 16:20 04/26/18 16:20 Medications Given: Acetaminophen (Tylenol) 1,000 mg PO Q6 PRN PRN Reason: Pain, Moderate Stop: 10/23/18 21:44 Last Admin: 04/29/18 11:14 Dose: 1,000 mg Albuterol (Proventil Inhaler) 2 puffs IH QID PRN PRN Reason: SHORTNESS OF BREATH Stop: 10/23/18 21:44 Last Admin: 04/29/18 05:40 Dose: 2 puffs Amlodipine Besylate (Norvasc) 5 mg PO DAILY [facility] Stop: 10/24/18 08:59 Last Admin: 04/30/18 08:28 Dose: Not Given Apixaban (Eliquis) 5 mg PO BID JANELL Stop: 10/26/18 20:59 Last Admin: 04/30/18 15:37 Dose: 5 mg Aspirin (Aspirin) 325 mg PO DAILY [facility] Stop: 10/24/18 08:59 Last Admin: 04/28/18 08:07 Dose: Not Given Atorvastatin Calcium (Lipitor) 20 mg PO HS [facility] Stop: 10/23/18 22:29 Last Admin: 04/29/18 20:57 Dose: 20 mg Benzonatate (Tessalon Pearles) 100 mg PO TID PRN PRN Reason: Cough, Mild Stop: 10/23/18 19:39 Last Admin: 04/30/18 15:37 Dose: 100 mg Clonazepam (Klonopin) 0.25 - 0.5 mg PO HS PRN PRN Reason: Sleep/Insomnia Stop: 10/23/18 21:44 Last Admin: 04/28/18 18:06 Dose: 0.25 mg Escitalopram Oxalate (Lexapro) 10 mg PO DAILY [facility] Stop: 10/24/18 08:59 Last Admin: 04/30/18 08:27 Dose: 10 mg Fenofibrate (Tricor) 145 mg PO DAILY JANELL Stop: 10/24/18 08:59 Last Admin: 04/30/18 08:27 Dose: 145 mg Furosemide (Lasix) 20 mg PO DAILY [facility] Stop: 10/24/18 08:59 Last Admin: 04/30/18 08:27 Dose: 20 mg Guaifenesin (Mucinex) 600 mg PO BID JANELL Stop: 10/24/18 08:59 Last Admin: 04/30/18 08:27 Dose: 600 mg Metoprolol Tartrate (Lopressor) 50 mg PO BID [facility] Stop: 10/24/18 08:59 Last Admin: 04/30/18 08:28 Dose: Not Given Fluticasone/Salmeterol (Advair) 1 puffs IH BID [facility] Stop: 10/24/18 08:59 Last Admin: 04/30/18 08:37 Dose: 1 puffs Sucralfate (Carafate) 1 gm PO QID PRN PRN Reason: UPSET STOMACH Stop: 10/23/18 21:44 Last Admin: 04/28/18 16:44 Dose: 1 gm Tiotropium Prosperity (Spiriva Handihaler) 18 mcg IH DAILY@12 [facility] Stop: 10/24/18 11:59 Last Admin: 04/30/18 11:55 Dose: 1 inh Discontinued Medications Epinephrine HCl (Epinephrine) 2 mg SUBMUCOSAL .STK-MED ONE Stop: 04/28/18 14:30 Last Admin: 04/28/18 14:29 Dose: 2 mg Fentanyl (Sublimaze) 100 mcg IVP .STK-MED ONE Stop: 04/28/18 14:31 Last Admin: 04/28/18 14:30 Dose: 100 mcg Guaifenesin (Mucinex) 1,200 mg PO BID [facility] Stop: 10/23/18 20:59 Last Admin: 04/26/18 21:52 Dose: 1,200 mg Potassium Chloride/Sodium Chloride (Ns W/ 20 Kcl/L) 1,000 mls @ 75 mls/hr IV CONT [facility] Stop: 10/24/18 10:44 Last Admin: 04/28/18 00:20 Dose: 1,000 mls Sodium Chloride (Ns) 500 mls @ 25 mls/hr IV ONCALL ONE Stop: 04/29/18 08:57 Last Admin: 04/28/18 15:32 Dose: Not Given Sodium Chloride (Ns) 500 mls @ 1,500 mls/hr IV ONCE ONE Stop: 04/30/18 11:26 Last Admin: 04/30/18 11:55 Dose: 500 mls Levofloxacin (Levaquin) 750 mg PO DAILY AT 10AM [facility] PRN Reason: Protocol Stop: 05/27/18 09:59 Last Admin: 04/28/18 10:16 Dose: 750 mg Midazolam HCl (Versed) 3 mg IVP .STK-MED ONE Stop: 04/28/18 14:31 Last Admin: 04/28/18 14:30 Dose: 3 mg Departure - Departure Disposition: [facility] Acute Clinical Impression: History of atrial fibrillation, Chronic anticoagulation, Dependence on supplemental oxygen, right hilar mass, Hemoptysis Condition: Fair
[2018-04-26 16:27] LABS: PLATELET COUNT 199 10^3/uL (150-400)
[2018-04-26 16:40] LABS: INR 1.53 (0.83-1.16); PROTIME(PATIENT) 18.5 SEC (12.0-15.0)
[2018-04-26] MEDS ORDERED: IOPAMIDOL (ISOVUE-300) 100 ML BTL ONE (17:04)
--- NOTE | 2018-04-26 19:59 | GHP ---
[f rep st] HISTORY AND PHYSICAL DATE OF ADMISSION: 04/26/2018 CHIEF COMPLAINT: Coughing up blood. HISTORY OF PRESENT ILLNESS: This is a 72-year-old female with history of COPD, congestive heart fail ure, AFib, hypertension, who presented to the hospital with hemoptysis. The patient has had 4 COPD e xacerbations in the last year. She was hospitalized in December of this year with right middle/right lo wer lobe pneumonia. The patient was started on levofloxacin last week for presumed upper respiratory infection/COPD exace rbation. Her respiratory status has been stable. She denies any fevers or chills. She denies any c hest pain. Today, she coughed up some blood and came to the emergency department for further evaluat ion. PAST MEDICAL HISTORY: COPD, hypertension, atrial fibrillation, acute on chronic hypoxemic respirator y failure, right-sided heart failure, hospitalizations for community-acquired pneumonia, acute kidney injury. HOME MEDICATIONS: Reviewed. Refer to [facility] for details. ALLERGIES: Penicillin. SOCIAL HISTORY: The patient is a former smoker. She denies any alcohol or illicit drug use. FAMILY HISTORY: Reviewed and noncontributory. REVIEW OF SYSTEMS: Comprehensive 10-point review of systems was done and is negative, except as ment ioned in the HPI. PHYSICAL EXAM: VITAL SIGNS: Blood pressure 111/67, pulse of 94, respiratory rate 16, O2 sat 95% on 2 L, temperature afebrile. GENERAL: No acute distress. HEAD: Normocephalic, atraumatic. EYES: P ERRLA. Sclerae anicteric. MOUTH: Moist mucous membranes. NECK: Supple. No lymphadenopathy. CAR DIOVASCULAR: S1, S2 no JVD. No lower extremity edema. PULMONARY: Diminished breath sounds in the right base. No respiratory distress. ABDOMEN: Soft, nontender, nondistended. No guarding or rebou nd tenderness. Normoactive bowel sounds. EXTREMITIES: No clubbing or cyanosis. NEURO: Cranial ne rves 2-12 grossly intact. No focal motor or sensory deficits. SKIN: Clear, no rashes. DIAGNOSTICS: WBC 6.79, hemoglobin 11, hematocrit 33.5, platelets 199. Sodium 133, potassium 4.8, ch loride 96, BUN 43, creatinine 1.4, glucose 120. Chest CT done today, which I visualized and personal ly interpreted, shows infiltrative right hilar mass suspicious for primary bronchogenic carcinoma wit h near complete collapse of the right middle lobe and minimal postobstructive consolidation in the ri ght upper lobe. Please refer to report for full details. ASSESSMENT AND PLAN: This is a 72-year-old female with history of chronic obstructive pulmonary dise ase and chronic respiratory failure presenting with: 1. Hemoptysis, most likely due to newly diagnosed infiltrative right hilar mass suspicious for prima ry bronchogenic carcinoma. Plan: I discussed case with Dr. Bryson hCaparro from pulmonology who will see the patient in the morning. For now, will hold dose of Eliquis pending bronchoscopy. 2. Suspected postobstructive pneumonia. Plan: We will continue current dose of levofloxacin. 3. History of atrial fibrillation. Plan: Once again, Eliquis will be held. We will continue home rate-controlling medications. The patient requests to be full code status. /[id number]/MODL
[2018-04-26] MEDS ORDERED: guaiFENesin 600 MG TAB.ER PO SCH (21:00)
[2018-04-26] MEDS ORDERED: CETIRIZINE 10 MG TAB PO PRN (21:45)
[2018-04-26] MEDS ORDERED: ALBUTEROL 60 PUFFS/8 GM MDI IH PRN (21:45)
[2018-04-26] MEDS ORDERED: SUCRALFATE 1 GM TAB PO PRN (21:45)
[2018-04-26] MEDS ORDERED: FAMOTIDINE 20 MG TAB PO PRN (21:45)
[2018-04-27] MEDS: ATORVASTATIN CALCIUM 20 MG TAB PO SCH ×2 (00:08→20:10)
[2018-04-27 04:28] LABS: PLATELET COUNT 175 10^3/uL (150-400)
[2018-04-27] MEDS: TIOTROPIUM INHALER 18 MCG/DOSE 5 DOSE/MDI IH SCH (09:33)
[2018-04-27] MEDS: FLUTICASONE/SALMETER 500/50MCG DISKUS IH SCH ×2 (09:33→20:13)
[2018-04-27] MEDS: FUROSEMIDE 20 MG TAB PO SCH (09:55)
[2018-04-27] MEDS: FENOFIBRATE 145 MG TAB PO SCH (09:55)
[2018-04-27] MEDS: guaiFENesin 600 MG TAB.ER PO SCH ×2 (09:55→20:10)
[2018-04-27] MEDS: METOPROLOL TARTRATE 50 MG TAB PO SCH ×2 (09:56→20:10)
[2018-04-27] MEDS: ESCITALOPRAM OXALATE 10 MG TAB PO SCH (09:56)
[2018-04-27] MEDS: amLODIPine BESYLATE 5 MG TAB PO SCH (09:56)
[2018-04-27] MEDS: ASPIRIN 325 MG TAB PO SCH (09:57)
--- NOTE | 2018-04-27 10:12 | ASMTCMCOM ---
CM Note CM Note Notes: (continuation from last note)Pt has 2 other daughters; her oldest daughter has bi-polar disorder. Pt has been told that she may have cancer and is awaiting tests for confirmation. Her present mood is bright, "I've lived a good life", but she acknowledges the possibility that if the cancer is confirmed, this may change and she may experience a multitude of emotions. She seems most concerned for her daughter Erica, who lives here and is sensitive and empathetic. Amber from [facility] called to inquire about Pt. Pt does not want her medical inf to be shared with Amber and it was agreed CM will call and simply confirm that Pt is here and undergoing tests. Pt asked for the number to [facility] so she may speak to them herself. CM will follow. D/C Plan: TBD Date Signed: 04/27/2018 10:10 AM Electronically Signed By:Luna Kenney
[2018-04-27] MEDS ORDERED: NS W/ 20 KCl/L 1,000 ML IV SCH (10:45)
--- NOTE | 2018-04-27 11:55 | HOSPPROG ---
Hospitalist Progress Note Assessment/Plan: #Right Hilar Mass, concerning for primary bronchogenic carcinoma -Awaiting Bronchoscopy, will prob not be done until tomorrow #Hemoptysis #Chronic resp failure, baseline is 4 L at rest, 5 with exertion -at baseline #Hx of COPD, not in exacerbation #Hx of CHF #Afib #HTN #Pneumonia: on Levaquin, started as outpatient Plan: -Bronchoscopy per Pulm -Hold Eliquis -Cont abx -Inpatient Subjective: minimal hemotysis. awaiting bronchoscopy. Objective: Vital Signs Temp Pulse Resp BP Pulse Ox 37.0 C 93 18 110/57 L 95 04/27/18 11:47 04/27/18 11:47 04/27/18 11:47 04/27/18 11:47 04/27/18 11:47 Laboratory Results 04/27/18 03:55 04/27/18 03:55 04/26/18 04/27/18 04/28/18 05:59 05:59 05:59 Intake Total 300 Output Total 1150 Balance -850 PT 18.5 SEC (12.0-15.0) H 04/26/18 16:20 INR 1.53 (0.83-1.16) H 04/26/18 16:20 - Physical Exam Constitutional: no apparent distress Eyes: PERRL, EOMI Ears, Nose, Mouth, Throat: moist mucous membranes, hearing normal Cardiovascular: regular rate and rhythym, No edema Respiratory: reduced air movement Gastrointestinal: normoactive bowel sounds, soft, non-tender abdomen Skin: warm Musculoskeletal: full muscle strength Neurologic: AAOx3 Psychiatric: interacting appropriately, not anxious, not encephalopathic Lymph, Heme, Immunologic: No petechiae ICD10 Worksheet Patient Problems: Problems Problem Status Onset Chronic anticoagulation Acute Dependence on supplemental oxygen Acute History of atrial fibrillation Acute Atrial fibrillation Acute Pleural effusion Acute Pneumonia Acute Shortness of breath Acute chronic disease mgmt/transitional care Acute
--- NOTE | 2018-04-27 12:36 | GCON ---
[f rep st] CONSULTATION PULMONARY CONSULTATION DATE OF CONSULTATION: 04/27/2018 HISTORY OF PRESENT ILLNESS: This patient is a 72-year-old female with a history of known COPD and an FEV1 of about 49% of predicted, who has had several COPD exacerbations over the last year. The most recent one was in December of 2017. She was treated with antibiotics and got better. In the last week , however, she developed upper respiratory symptoms, was treated with Levaquin as an outpatient. She said that she felt substantially better after taking the antibiotic, but on day of admission complai luis of blood-streaked sputum. Her vital signs were quite stable. A chest x-ray showed fullness in t he right hilum, and her white count was normal. A CT scan was performed that, unfortunately, reveale d an obstructing mass causing right middle lobe atelectasis and with great concerns for malignancy. In terms of symptoms, she says that her breathing is at its baseline. She denies any unanticipated w eight loss. No appetite changes. She did have an episode of hemoptysis about a week and a half ago, which she attributed to epistaxis due to her chronic oxygen use. She was last seen by me in clinic on 03/01/2018, and was feeling quite well at that time. I was also concerned about sleep apnea and s uggested a sleep study, but she declined. She also has a history of atrial fibrillation and has been on Eliquis until yesterday. REVIEW OF SYSTEMS: Otherwise negative. PAST MEDICAL HISTORY: Includes: 1. COPD as described above with exacerbations in February 2017, May 2017, June 2017, August 28, and December 2017 plus now. 2. History of anemia of chronic disease. 3. Anxiety. 4. Atrial fibrillation. 5. Obesity. 6. Hypertension. 7. Hypoxemia. 8. Hyperlipidemia. 9. History of viral pneumonia. 10. Urinary incontinence. PAST SURGICAL HISTORY: Includes back surgery. OUTPATIENT MEDICATIONS: Include Advair, albuterol, amlodipine, Lexapro, ProAir, ramipril, Spiriva, T ylenol, aspirin, atorvastatin, Zyrtec, clonazepam, Eliquis, Pepcid, fenofibrate, Lasix 20 a day, meto prolol, rosuvastatin and sucralfate. SOCIAL HISTORY: She is a former smoker, but no significant alcohol or IV drug use. FAMILY HISTORY: Noncontributory at this time. PHYSICAL EXAMINATION: VITAL SIGNS: She has been afebrile since arrival. Her blood pressure 110/57, heart rate 93, respirations 18, oxygen saturation 95% on 4 L. She is a very pleasant, obese female in no apparent distress. She was able to speak in full sentences without using accessory muscles for breathing. Pupils were equally round and reactive to light nonicteric and noninjected. Mucous memb ranes moist without erythema or exudate. NECK: Supple without adenopathy or jugular vein distention . Breath sounds were remarkably clear to auscultation bilaterally without wheezes, rubs or rales. H EART: Regular rate and rhythm without obvious murmur. ABDOMEN: Soft, nontender, nondistended witho ut hepatosplenomegaly. EXTREMITIES: Shoe no clubbing, cyanosis, or edema. NEUROLOGIC: Nonfocal. SKIN: Warm and dry without evidence of rash. OBJECTIVE DATA: Includes CT scan as described above. Her white count is 6.27, hematocrit 29.7, and platelets of 175. Basic metabolic panel was unremarkable. Creatinine is 1.3. INR was 1.53 yesterda y. ASSESSMENT AND PLAN: Right upper lobe mass in a patient at very high risk for lung cancer, and I thi nk a bronchoscopy is warranted at this time. I would like to give her 24 hours to let the Eliquis we ar off in its entirety to minimize the risk of intrabronchial bleeding. I discussed the findings wit h the patient in some detail. She agreed to proceed, and we will arrange for transbronchial lung bio psy tomorrow and proceed accordingly. /[id number]/MODL
--- NOTE | 2018-04-27 13:17 | PDMN ---
Medical Necessity Medical necessity: Pt meets IP criteria per MD; est los >2 mn for eval/tx of suspected postobstructive pneumonia & hemoptysis likely r/t infiltrative R hilar mass suspicious for bronchogenic carcinoma; admit for further monitoring, Pulmonology consult, bronchoscopy, IVFs & supportive care; comorbid advanced age , COPD, CHF, AFIB, HTN, AUBREE; per H&P & order 731/18
[2018-04-27] MEDS: clonazePAM 0.5 MG TAB PO PRN (23:29)
[2018-04-28 04:43] LABS: PLATELET COUNT 173 10^3/uL (150-400)
[2018-04-28] MEDS: amLODIPine BESYLATE 5 MG TAB PO SCH (08:07)
[2018-04-28] MEDS: ASPIRIN 325 MG TAB PO SCH (08:07)
[2018-04-28] MEDS: ESCITALOPRAM OXALATE 10 MG TAB PO SCH (08:08)
[2018-04-28] MEDS: guaiFENesin 600 MG TAB.ER PO SCH ×2 (08:08→21:15)
[2018-04-28] MEDS: FUROSEMIDE 20 MG TAB PO SCH (08:08)
[2018-04-28] MEDS: FENOFIBRATE 145 MG TAB PO SCH (08:08)
[2018-04-28] MEDS: METOPROLOL TARTRATE 50 MG TAB PO SCH ×2 (08:08→21:15)
[2018-04-28] MEDS: FLUTICASONE/SALMETER 500/50MCG DISKUS IH SCH ×2 (08:14→20:41)
[2018-04-28] MEDS: TIOTROPIUM INHALER 18 MCG/DOSE 5 DOSE/MDI IH SCH (09:08)
[2018-04-28] MEDS ORDERED: NS 500 ML IV ONE (12:58)
[2018-04-28] MEDS ORDERED: LIDOCAINE 1% 2 ML INJ ID PRN (12:58)
[2018-04-28] MEDS ORDERED: LIDOCAINE HCL 4% TOPICAL SOLN 50ML ONE (13:08)
[2018-04-28] MEDS ORDERED: ALBUTEROL 3 ML DEYVIAL ONE (13:08)
--- NOTE | 2018-04-28 13:13 | HOSPPROG ---
Hospitalist Progress Note Assessment/Plan: #Right Hilar Mass, concerning for primary bronchogenic carcinoma -Awaiting Bronchoscopy today -Holding Eliquis and Aspirin #Hemoptysis #Chronic resp failure, baseline is 4 L at rest, 5 with exertion -at baseline #Hx of COPD, not in exacerbation #Hx of CHF, on home meds #Afib #HTN #Pneumonia: on Levaquin, started as outpatient. Can likely stop today given on leukocytosis and unclear duration. Will check a procalcitonin to help guide abx duration IVF while NPO, can stop once tolerating a diet. Subjective: no cp or sob. Awaiting bronchoscopy Objective: Vital Signs Temp Pulse Resp BP Pulse Ox 36.9 C 91 16 124/69 H 96 04/28/18 12:51 04/28/18 12:51 04/28/18 12:51 04/28/18 12:51 04/28/18 12:51 Laboratory Results 04/28/18 04:19 04/27/18 03:55 04/27/18 04/28/18 04/29/18 05:59 05:59 05:59 Intake Total 300 1240 Output Total 1150 Balance -850 1240 PT 18.5 SEC (12.0-15.0) H 04/26/18 16:20 INR 1.53 (0.83-1.16) H 04/26/18 16:20 - Physical Exam Constitutional: no apparent distress Eyes: PERRL, EOMI Ears, Nose, Mouth, Throat: moist mucous membranes, hearing normal, ears appear normal Cardiovascular: No edema Respiratory: no respiratory distress, no rales or rhonchi, clear to auscultation Gastrointestinal: normoactive bowel sounds, soft, non-tender abdomen Skin: warm Neurologic: AAOx3 Psychiatric: interacting appropriately, not anxious, not encephalopathic Lymph, Heme, Immunologic: No petechiae ICD10 Worksheet Patient Problems: Problems Problem Status Onset Chronic anticoagulation Acute Dependence on supplemental oxygen Acute History of atrial fibrillation Acute Atrial fibrillation Acute Pleural effusion Acute Pneumonia Acute Shortness of breath Acute chronic disease mgmt/transitional care Acute
[2018-04-28] MEDS ORDERED: EPINEPHrine 1 MG/ML INJ ONE ×2 (13:15→13:33)
[2018-04-28] MEDS ORDERED: LIDOCAINE 1% 300 MG/30 ML SDV ONE (13:16)
[2018-04-28] MEDS ORDERED: LIDOCAINE 2% JELLY 5 ML TUBE ONE (13:16)
[2018-04-28] MEDS ORDERED: MIDAZOLAM 2 MG/2 ML VIAL ONE (13:36)
[2018-04-28] MEDS ORDERED: fentaNYL 100 MCG/2 ML INJ ONE ×2 (13:37→14:19)
--- NOTE | 2018-04-28 13:44 | PDPROPOC ---
Sedation Plan of Care Sedation Plan of Care: vital signs stable, mental status noted, patient educated of risks, benefits, alternatives, patient can tolerate sedation ASA Classification: ASA 2 Planned drugs: fentanyl, midazolam Mallampati Score: Class 3 Mallampati Reference Image:
[2018-04-28] MEDS ORDERED: EPINEPHrine 1 MG/ML INJ SUBMUCOSAL ONE (14:29)
[2018-04-28] MEDS ORDERED: fentaNYL 100 MCG/2 ML INJ IVP ONE (14:30)
[2018-04-28] MEDS ORDERED: MIDAZOLAM 2 MG/2 ML VIAL IVP ONE (14:30)
--- NOTE | 2018-04-28 14:59 | PDINTPN ---
Member Service Specialist Progress Note Assessment/Plan: 72 F known to me from clinic with COPD and frequent exacerbations recently treated for PNA with clinical improvement but admitted with hemoptysis and found to have right hilar mass on CT. * Lung mass- jhighly suspicious for malignancy and OK for bronch. Held eliquis 24 hours to decrease risk of bleeding * COPD stable * O2- 2/2 COPD and proable ENEIDA. She has refused previous sleep study requests. Subjective: no events Objective: Vital Signs Temp Pulse Resp BP Pulse Ox 36.9 C 91 16 124/69 H 96 04/28/18 12:51 04/28/18 12:51 04/28/18 12:51 04/28/18 12:51 04/28/18 12:51 Laboratory Results 04/28/18 04:19 04/27/18 03:55 04/27/18 04/28/18 04/29/18 05:59 05:59 05:59 Intake Total 300 1240 Output Total 1150 Balance -850 1240 PT 18.5 SEC (12.0-15.0) H 04/26/18 16:20 INR 1.53 (0.83-1.16) H 04/26/18 16:20 Physical Exam - Physical Exam General Appearance: alert, no apparent distress, obese EENT: PERRL/EOMI Neck: supple Respiratory: lungs clear, normal breath sounds, No respiratory distress, No accessory muscle use Cardiac/Chest: regular rate, rhythm, No edema Abdomen: non-tender, soft, No distended Skin: normal color, warm/dry, No cyanosis Lymphatic: no adenopathy Extremities: No pedal edema Neuro/Psych: alert, normal mood/affect, oriented x 3 ICD10 Worksheet Patient Problems: Problems Problem Status Onset Chronic anticoagulation Acute Dependence on supplemental oxygen Acute History of atrial fibrillation Acute Atrial fibrillation Acute Pleural effusion Acute Pneumonia Acute Shortness of breath Acute chronic disease mgmt/transitional care Acute
--- NOTE | 2018-04-28 15:12 | BVPULMO ---
[facility]- Pulmonology Patient Name: Guillermina Ledbetter Procedure Date: 04/28/2018 1:25 PM Patient Type: Inpatient Attending MD/ER Physician: Leonard Chaparro MD Procedure: Bronchoscopy Indications: Lung mass Providers: Leonard Chaparro MD Medicines: Lidocaine 1% applied to cords 2 mL, Lidocaine 1% applied to the tracheobronchia l tree 4 mL, Fentanyl 100 mcg IV, Midazolam 3 mg mg IV Complications: No immediate complications Procedure: After informed consent, a time out was performed. N95 masks were worn, and the procedure was done in a negative pressure room. The patient was given appropria te topical anesthesia and intravenous sedation. The fiberopic bronchoscope was pas sed via a bite block orally into the larynx and subsequently into the lower trachea bronchial tree. Throughout the procedure, the patient's blood pressure, pulse, and oxygen saturations were monitored continuously. The Bronchoscope (Video) was introduced through the mouth and advanced to the tracheobronchial tree of both lungs. The procedure was accomplished without difficulty. The patient tolerated the procedure well. Findings: Right Lung Abnormalities: Extrinsic compression was found in the right upper lo be. The airway lumen is occluded. The lesion was not traversed. A nearly obstructin g (greater than 90% obstructed) mass was found in the right upper lobe. The mass was endobronchial. Endobronchial biopsies were performed in the right upper lobe us ing forceps and sent for routine cytology. Two samples were obtained. Estimated blo od loss: minimal. Endobronchial biopsies were performed in the right upper lobe us ing forceps and sent for histopathology examination. Two samples were obtained. Estimated blood loss: minimal. Washings were obtained in the right upper lobe and sent for routine cytology. T he return was bloody. Post Op Diagnosis: - Lung mass - Extrinsic compression was found in the right upper lobe. - An endobronchial mass was found in the right upper lobe. - An endobronchial biopsy was performed. - An endobronchial biopsy was performed. - Washings were obtained. Estimated Blood Loss: Estimated blood loss was minimal. Recommendation: - [facility] to [facility]. - The patient was advised to call or return to the clinic if there are signs or symptoms suggesting a complication/adverse reaction from the procedure. Leonard Chaparro MD Leonard Chaparro MD 04/28/2018 3:12:12 PM This report has been signed electronicallyLeonard Chaparro MD Number of Addenda: 0 Note Initiated On: 04/28/2018 1:25 PM [email or web address]
[2018-04-28] MEDS: clonazePAM 0.5 MG TAB PO PRN (18:06)
[2018-04-28] MEDS: ATORVASTATIN CALCIUM 20 MG TAB PO SCH (21:15)
[2018-04-29 05:17] LABS: PLATELET COUNT 179 10^3/uL (150-400)
[2018-04-29] MEDS: amLODIPine BESYLATE 5 MG TAB PO SCH (08:13)
[2018-04-29] MEDS: METOPROLOL TARTRATE 50 MG TAB PO SCH ×2 (08:13→20:57)
[2018-04-29] MEDS: FUROSEMIDE 20 MG TAB PO SCH (08:13)
[2018-04-29] MEDS: FENOFIBRATE 145 MG TAB PO SCH (08:13)
[2018-04-29] MEDS: ESCITALOPRAM OXALATE 10 MG TAB PO SCH (08:14)
[2018-04-29] MEDS: guaiFENesin 600 MG TAB.ER PO SCH ×2 (08:14→20:57)
[2018-04-29] MEDS: TIOTROPIUM INHALER 18 MCG/DOSE 5 DOSE/MDI IH SCH (09:21)
[2018-04-29] MEDS: FLUTICASONE/SALMETER 500/50MCG DISKUS IH SCH ×2 (09:22→20:58)
[2018-04-29] MEDS: ACETAMINOPHEN 500 MG TAB PO PRN (11:14)
--- NOTE | 2018-04-29 12:32 | PDINTPN ---
Garbage Pick Up Worker Progress Note Assessment/Plan: 72 F known to me from clinic with COPD and frequent exacerbations recently treated for PNA with clinical improvement but admitted with hemoptysis and found to have right hilar mass on CT. * Lung mass- s/p endobronchial biopsy, brush, wash. Path still pending. She had moderate bleeding during biopsies, likely related to eliquis, which effected the number of samples I could get. Await path. * hemoptysis- stable and 2/2 lung mass. * COPD stable * O2- 2/2 COPD and probable ENEIDA. She has refused previous sleep study requests. * Dispo: OK for dc home today- she should have FU with me a week from wednesday unless I hear from path sooner. OK to overbook 04/29/18 12:30 Subjective: no events Objective: Vital Signs Temp Pulse Resp BP Pulse Ox 36.6 C 91 16 121/54 H 93 04/29/18 11:16 04/29/18 11:16 04/29/18 11:16 04/29/18 11:16 04/29/18 11:16 Microbiology 04/28/18 14:00 Gram Stain - Final Lung Right Upper Lobe - Bronchial Washings Laboratory Results 04/29/18 04:32 04/27/18 03:55 04/28/18 04/29/18 04/30/18 05:59 05:59 05:59 Intake Total 1240 640 Balance 1240 640 PT 18.5 SEC (12.0-15.0) H 04/26/18 16:20 INR 1.53 (0.83-1.16) H 04/26/18 16:20 Physical Exam - Physical Exam General Appearance: alert, no apparent distress, obese EENT: PERRL/EOMI Neck: supple Respiratory: lungs clear, decreased breath sounds, No respiratory distress, No accessory muscle use Cardiac/Chest: regular rate, rhythm, No edema Abdomen: non-tender, soft, No distended Skin: normal color, warm/dry, No cyanosis Lymphatic: no adenopathy Extremities: No pedal edema Neuro/Psych: alert, normal mood/affect, oriented x 3 ICD10 Worksheet Patient Problems: Problems Problem Status Onset Chronic anticoagulation Acute Dependence on supplemental oxygen Acute History of atrial fibrillation Acute Atrial fibrillation Acute Pleural effusion Acute Pneumonia Acute Shortness of breath Acute chronic disease mgmt/transitional care Acute
--- NOTE | 2018-04-29 13:17 | PDDCSUM ---
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 She underwent bronchoscopy per Dr. Chaparro. Biopsies are pending and she will f/u with Dr. Chaparro one week from Wednesday. Otherwise she is at baseline in regards to her other MMP. She has previously been getting treatment for CAP and was on Levaquin and this has been stopped. Please see below for details per problem list. DDX: #Right Hilar Mass, concerning for primary bronchogenic carcinoma -f/u biopsies -ok to restart Eliquis #Hemoptysis, resolved #Chronic resp failure, baseline is 4 L at rest, 5 with exertion -at baseline #Hx of COPD, not in exacerbation #Hx of CHF, on home meds. Euvolemic on discharge #Afib #HTN #Pneumonia: no e/o of pneumonia here. Levaquin stopped Exam NAD AAOX3 RRR DECREASED LUNG SOUNDS S/NT/ND NO EDEMA MEDS: SEE MED REC F/U: WITH DR. CHAPARRO PER ABOVE TOTAL TIME SPENT ON DISCHARGE IS 35 MINS
--- NOTE | 2018-04-29 15:32 | ASMTCMCOM ---
CM Note CM Note Notes: Physician wrote D/C orders. [facility] notified. They stated that they would need to evaluate Pt on Wednesday. Nurse not available after 2:30PM. Pt and daughter told. CM to follow. D/C Plan: [facility] Date Signed: 04/29/2018 03:31 PM Electronically Signed By:Luna Kenney
[2018-04-29] MEDS: ATORVASTATIN CALCIUM 20 MG TAB PO SCH (20:57)
[2018-04-29] MEDS: APIXABAN 5 MG TAB PO SCH ×2 (20:57→21:03)
[2018-04-30] MEDS: BENZONATATE 100 MG CAP PO PRN ×4 (00:57→22:01)
[2018-04-30 04:47] LABS: PLATELET COUNT 179 10^3/uL (150-400)
[2018-04-30] MEDS: ESCITALOPRAM OXALATE 10 MG TAB PO SCH (08:27)
[2018-04-30] MEDS: FUROSEMIDE 20 MG TAB PO SCH (08:27)
[2018-04-30] MEDS: FENOFIBRATE 145 MG TAB PO SCH (08:27)
[2018-04-30] MEDS: guaiFENesin 600 MG TAB.ER PO SCH ×2 (08:27→22:01)
[2018-04-30] MEDS: METOPROLOL TARTRATE 50 MG TAB PO SCH ×2 (08:28→22:05)
[2018-04-30] MEDS: amLODIPine BESYLATE 5 MG TAB PO SCH (08:28)
[2018-04-30] MEDS: FLUTICASONE/SALMETER 500/50MCG DISKUS IH SCH ×2 (08:37→22:36)
[2018-04-30] MEDS ORDERED: NS 500 ML IV ONE (11:07)
[2018-04-30] MEDS: TIOTROPIUM INHALER 18 MCG/DOSE 5 DOSE/MDI IH SCH (11:55)
--- NOTE | 2018-04-30 13:47 | HOSPPROG ---
Hospitalist Progress Note Assessment/Plan: #Right Hilar Mass, concerning for primary bronchogenic carcinoma -s/p Bronchoscopy -f/u biopsy with Dr. Chaparro -restart Dean -Restart Aspirin soon #Hemoptysis, resolved #Chronic resp failure, baseline is 4 L at rest, 5 with exertion -at baseline #Hx of COPD, not in exacerbation #Hx of CHF, on home meds #Afib #HTN -she had hypotension this morning. She was given stat IVF and BP is now ok. Holding BP meds. No signs or e/o infection. She feels great #Pneumonia: resolved. s/p Levaquin Inpatient Awaiting placement obtain PT eval Subjective: transient low BP. now better. no cp or sob. no e/o bleeding. Objective: Vital Signs Temp Pulse Resp BP Pulse Ox 36.4 C 89 16 123/70 H 97 04/30/18 11:20 04/30/18 11:20 04/30/18 11:20 04/30/18 11:20 04/30/18 11:20 Microbiology 04/28/18 14:00 Gram Stain - Final Lung Right Upper Lobe - Bronchial Washings Bronchial Washings Culture - Final 04/28/18 14:00 Mycobacterial Smear (ARMEN) - Final Lung Right Upper Lobe - Bronchial Washings Laboratory Results 04/30/18 04:32 04/30/18 11:55 04/29/18 04/30/18 05/01/18 05:59 05:59 05:59 Intake Total 640 4000 Balance 640 4000 PT 18.5 SEC (12.0-15.0) H 04/26/18 16:20 INR 1.53 (0.83-1.16) H 04/26/18 16:20 - Physical Exam Constitutional: no apparent distress Eyes: PERRL, EOMI Ears, Nose, Mouth, Throat: moist mucous membranes, hearing normal Cardiovascular: regular rate and rhythym, No edema Respiratory: no respiratory distress, no rales or rhonchi Gastrointestinal: normoactive bowel sounds, soft, non-tender abdomen Skin: warm Neurologic: AAOx3 Psychiatric: interacting appropriately, not anxious, not encephalopathic ICD10 Worksheet Patient Problems: Problems Problem Status Onset Chronic anticoagulation Acute Dependence on supplemental oxygen Acute History of atrial fibrillation Acute Atrial fibrillation Acute Pleural effusion Acute Pneumonia Acute Shortness of breath Acute chronic disease mgmt/transitional care Acute
--- NOTE | 2018-04-30 14:28 | ASMTCMCOM ---
CM Note CM Note Notes: 04/30/2018 Case Management Note Discussed case with Dr. Meeks. PT eval ordered. Met w/pt. Pt lives at [facility] in the [place]. She takes her meals in the dining bowles, has RN med managment and assistance with ADL's. In the past she has SNF rehab stay at the [facility] in [place]. Pt has had home care at [facility] but was unable to recall the name of the agency. Pt would prefer to return to [facility], however if [facility] requests SNF rehab stay, she would prefer returning to the [facility] in [place]. Case Management d/c poc: to be determined pending outcome of assessment from [facility] on Wednesday. Case Management to follow. Date Signed: 04/30/2018 02:27 PM Electronically Signed By:Estrellita Prajapati RN
[2018-04-30] MEDS: APIXABAN 5 MG TAB PO SCH ×2 (15:37→22:01)
[2018-04-30] MEDS: ACETAMINOPHEN 500 MG TAB PO PRN (22:01)
[2018-04-30] MEDS: ATORVASTATIN CALCIUM 20 MG TAB PO SCH (22:01)
[2018-04-30] MEDS: clonazePAM 0.5 MG TAB PO PRN (22:01)
[2018-05-01 05:22] LABS: PLATELET COUNT 173 10^3/uL (150-400)
[2018-05-01] MEDS: APIXABAN 5 MG TAB PO SCH ×2 (08:16→20:12)
[2018-05-01] MEDS: FENOFIBRATE 145 MG TAB PO SCH (08:16)
[2018-05-01] MEDS: FUROSEMIDE 20 MG TAB PO SCH (08:16)
[2018-05-01] MEDS: guaiFENesin 600 MG TAB.ER PO SCH ×2 (08:16→20:12)
[2018-05-01] MEDS: METOPROLOL TARTRATE 50 MG TAB PO SCH (08:16)
[2018-05-01] MEDS: amLODIPine BESYLATE 5 MG TAB PO SCH (08:17)
[2018-05-01] MEDS: ESCITALOPRAM OXALATE 10 MG TAB PO SCH (08:17)
[2018-05-01] MEDS: FLUTICASONE/SALMETER 500/50MCG DISKUS IH SCH ×2 (08:20→21:44)
[2018-05-01] MEDS: METOPROLOL TARTRATE 25 MG TAB PO SCH ×2 (08:56→20:11)
[2018-05-01] MEDS: TIOTROPIUM INHALER 18 MCG/DOSE 5 DOSE/MDI IH SCH (11:47)
[2018-05-01] MEDS: BENZONATATE 100 MG CAP PO PRN (12:02)
[2018-05-01] MEDS: ACETAMINOPHEN 500 MG TAB PO PRN (12:03)
--- NOTE | 2018-05-01 13:55 | HOSPPROG ---
Hospitalist Progress Note Assessment/Plan: #Right Hilar Mass, concerning for primary bronchogenic carcinoma -s/p Bronchoscopy -f/u biopsy with Dr. Chaparro -restart Dean -Restart Aspirin today, will start baby aspirin #Hemoptysis, resolved #Chronic resp failure, baseline is 4 L at rest, 5 with exertion -at baseline #Hx of COPD, not in exacerbation #Hx of CHF, on home meds #Afib -will decrease Metoprol dose given some hypotension recently #HTN -BP better today #Pneumonia: resolved. s/p Levaquin Inpatient Awaiting placement likely [facility] tomorrow Subjective: no overnight events. no cp or sob. Objective: Vital Signs Temp Pulse Resp BP Pulse Ox 36.6 C 103 H 18 110/68 97 05/01/18 12:00 05/01/18 12:00 05/01/18 12:00 05/01/18 12:00 05/01/18 12:00 Microbiology 04/28/18 14:00 Gram Stain - Final Lung Right Upper Lobe - Bronchial Washings Bronchial Washings Culture - Final Laboratory Results 05/01/18 04:44 04/30/18 11:55 04/30/18 05/01/18 05/02/18 05:59 05:59 05:59 Intake Total 4000 1850 Balance 4000 1850 PT 18.5 SEC (12.0-15.0) H 04/26/18 16:20 INR 1.53 (0.83-1.16) H 04/26/18 16:20 - Physical Exam Constitutional: no apparent distress Eyes: PERRL Ears, Nose, Mouth, Throat: moist mucous membranes, hearing normal Cardiovascular: regular rate and rhythym, No edema Respiratory: no respiratory distress, no rales or rhonchi, clear to auscultation Gastrointestinal: normoactive bowel sounds, soft, non-tender abdomen Skin: warm Musculoskeletal: full muscle strength Neurologic: AAOx3 Psychiatric: interacting appropriately, not anxious, not encephalopathic Lymph, Heme, Immunologic: No petechiae ICD10 Worksheet Patient Problems: Problems Problem Status Onset Chronic anticoagulation Acute Dependence on supplemental oxygen Acute Hemoptysis Acute History of atrial fibrillation Acute Atrial fibrillation Acute Pleural effusion Acute Pneumonia Acute Shortness of breath Acute chronic disease mgmt/transitional care Acute
--- NOTE | 2018-05-01 14:42 | ASMTCMCOM ---
CM Note CM Note Notes: Per PT note, patient would benefit from home PT at her assisted living facility. I've referred her to [facility], and they have accepted. She should d/c back to [facility] tomorrow AM. Case Management will follow. Date Signed: 05/01/2018 02:42 PM Electronically Signed By:Marcela Degroot RN
[2018-05-01] MEDS: ATORVASTATIN CALCIUM 20 MG TAB PO SCH (20:12)
[2018-05-01] MEDS: clonazePAM 0.5 MG TAB PO PRN (22:03)
[2018-05-02 05:32] LABS: PLATELET COUNT 207 10^3/uL (150-400)
[2018-05-02] MEDS: amLODIPine BESYLATE 5 MG TAB PO SCH (08:45)
[2018-05-02] MEDS: METOPROLOL TARTRATE 25 MG TAB PO SCH (08:45)
[2018-05-02] MEDS: FENOFIBRATE 145 MG TAB PO SCH (08:47)
[2018-05-02] MEDS: ESCITALOPRAM OXALATE 10 MG TAB PO SCH (08:47)
[2018-05-02] MEDS: FUROSEMIDE 20 MG TAB PO SCH (08:47)
[2018-05-02] MEDS: guaiFENesin 600 MG TAB.ER PO SCH (08:47)
[2018-05-02] MEDS: APIXABAN 5 MG TAB PO SCH (08:47)
[2018-05-02] MEDS ORDERED: ASPIRIN 81 MG CHEWABLE TAB PO SCH (09:00)
[2018-05-02] MEDS: FLUTICASONE/SALMETER 500/50MCG DISKUS IH SCH (09:07)
[2018-05-02] MEDS: TIOTROPIUM INHALER 18 MCG/DOSE 5 DOSE/MDI IH SCH (09:08)
[2018-05-02] MEDS: BENZONATATE 100 MG CAP PO PRN (09:50)
[2018-05-02 10:32] VITALS: BP 129/63
--- NOTE | 2018-05-02 11:01 | PDIAF ---
- Diagnosis Diagnosis: right hilar mass Code Status: Full Code - Medication Management Discharge Medications: Medications to Continue on Transfer Albuterol Hfa Anes Only [Proair Hfa Icu (*)] 1 - 2 puffs IH QID PRN 01/08/18 [ Last Taken Unknown] Cetirizine [ZyrTEC 10 mg (*)] 10 mg PO DAILY PRN 01/08/18 [Last Taken 01/07/18] Escitalopram Oxalate [Lexapro 10 MG] 10 mg PO DAILY 01/08/18 [Last Taken ] Famotidine [Pepcid 20 MG (*)] 20 mg PO BID PRN 01/08/18 [Last Taken 04/26/18 am dose only] Fenofibrate [Tricor 145 mg (*)] 145 mg PO DAILY 01/08/18 [Last Taken 04/26/18] Fluticasone/Salmeter 500/50Mcg [Advair 500/50 (*)] 1 puffs IH BID 01/08/18 [ Last Taken 04/26/18 am dose only] Sucralfate [Carafate 1 GM (*)] 1 gm PO QID PRN 01/08/18 [Last Taken 04/26/18] Tiotropium Inhaler [Spiriva Inhaler (RX)] 1 inh IH DAILY@12 01/08/18 [Last Taken 04/26/18] amLODIPine BESYLATE [Norvasc 5 mg (*)] 5 mg PO DAILY 01/08/18 [Last Taken ] clonazePAM [Klonopin (*)] 0.25 - 0.5 mg PO HS PRN 01/08/18 [Last Taken 04/25/18] Acetaminophen [Tylenol ES 500 mg (*)] 1,000 mg PO Q6 PRN 04/26/18 [Last Taken Unknown] Albuterol Sulfate [Ventolin Hfa] 2 puffs IH Q6H PRN 04/26/18 [Last Taken Unknown ] Apixaban [Eliquis] 5 mg PO BID 04/26/18 [Last Taken 04/26/18 am dose] Atorvastatin Calcium [Lipitor 20 mg (*)] 20 mg PO HS 04/26/18 [Last Taken ] Benzonatate 200 mg PO TID 04/26/18 [Last Taken 04/26/18] Furosemide [Lasix 20 MG (*)] 20 mg PO DAILY 04/26/18 [Last Taken 04/26/18] Ipratropium/Albuterol [Duoneb (*)] 3 ml IH QID PRN 04/26/18 [Last Taken Unknown] Ipratropium/Albuterol [Duoneb (*)] 3 ml IH QID PRN 04/26/18 [Last Taken Unknown] Metoprolol Tartrate [Lopressor 50 mg (*)] 50 mg PO BID 04/26/18 [Last Taken am dose only] guaiFENesin [Mucinex 600 MG (*)] 600 mg PO BID 04/26/18 [Last Taken 04/26/18 am dose only] Discharge Medications: Refer to the Discharge Home Medication list for PRN reason. - Orders Services needed: Registered Nurse, Physical Therapy Isolation Type: None Diet Recommendation: no restrictions on diet Diet Texture: Regular Texture Diet Additional Instructions: Activity as tolerated F/U: 1) with Dr. Chaparro on May 09, please call for appointment. Biopsies results will be provided to you by Dr. Chaparro All antibiotics have been stopped Ok to restart Eliquis Hold off on restarting Aspirin until you f/u with Dr. Chaparro Please seek medical care or come back to the emergency room if experiencing difficulty breathing, severe chest pain, unrelieved pain, unable to keep down food or liquids or if coughing up large amounts of blood. - Follow Up Care Current Providers and Referrals: Maris Esparza MD [Primary Care Provider] -
--- NOTE | 2018-05-02 11:04 | HOSPPROG ---
Hospitalist Progress Note Assessment/Plan: Right Hilar Mass, concerning for primary bronchogenic carcinoma s/p Bronchoscopy f/u biopsy with Dr. Chaparro restart Eliflakito Restart Aspirin today, will start baby aspirin Hemoptysis, resolved Chronic resp failure, baseline is 4 L at rest, 5 with exertion at baseline Hx of COPD, not in exacerbation Hx of CHF, on home meds Afib will decrease Metoprol dose given some hypotension recently tachy this AM but less so nw HTN BP better today Pneumonia: resolved. s/p Levaquin Subjective: very anxious for dc Objective: Vital Signs Temp Pulse Resp BP Pulse Ox 36.7 C 118 H 16 129/63 H 95 05/02/18 10:30 05/02/18 10:30 05/02/18 10:30 05/02/18 10:30 05/02/18 10:30 Laboratory Results 05/02/18 04:52 04/30/18 11:55 05/01/18 05/02/18 05/03/18 05:59 05:59 05:59 Intake Total 1850 1380 Balance 1850 1380 PT 18.5 SEC (12.0-15.0) H 04/26/18 16:20 INR 1.53 (0.83-1.16) H 04/26/18 16:20 - Physical Exam Constitutional: no apparent distress, appears nourished Eyes: PERRL, anicteric sclera Ears, Nose, Mouth, Throat: moist mucous membranes, hearing normal Cardiovascular: regular rate and rhythym, no murmur, rub, or gallop Respiratory: no respiratory distress, no rales or rhonchi Gastrointestinal: normoactive bowel sounds Genitourinary: no bladder fullness, No swartz in urethra Skin: warm, normal color Musculoskeletal: full muscle strength, no muscle tenderness Neurologic: AAOx3 ICD10 Worksheet Patient Problems: Problems Problem Status Onset Chronic anticoagulation Acute Dependence on supplemental oxygen Acute Hemoptysis Acute History of atrial fibrillation Acute Atrial fibrillation Acute Pleural effusion Acute Pneumonia Acute Shortness of breath Acute chronic disease mgmt/transitional care Acute
--- NOTE | 2018-05-02 11:10 | ASMTDCNOTE ---
Case Management Discharge Discharge Order Complete? Answers: Yes Patient to Obtain Answers: Other Notes: [facility] Transportation Arranged Answers: Family/Friends Faxed Final Orders Answers: Yes Discharge Comments Notes: Patient discharged back to her apartment at [facility]. Resumption of home care orders sent to [facility]. Patient's daughter to transport her home. Date Signed: 05/02/2018 11:09 AM Electronically Signed By:Marcela Degroot RN
== END 2018-05-02 12:17 | DRG 166 ==
LOC: EDUNIT# → F1N 21:02
PROVIDERS: ADMIT Family Medicine; ATTEND Family Medicine
PROC: 0BBC8ZX Excision of Right Upper Lung Lobe, Via Natural or Artificial Opening Endoscopic, Diagnostic (ICD-10-PCS; principal; 2018-04-28 14:00)
DX: C34.11 Malignant neoplasm of upper lobe, right bronchus or lung (principal); J18.9 Pneumonia, unspecified organism; J44.9 Chronic obstructive pulmonary disease, unspecified; I10 Essential (primary) hypertension; I48.91 Unspecified atrial fibrillation; Z79.01 Long term (current) use of anticoagulants; Z99.81 Dependence on supplemental oxygen
CPT/HCPCS: 97162-GP; G8978-GP-CJ; G8979-GP-CI; G8980-GP-CJ; J0171; J2250; J3010; J7613; Q9967